=== PATIENT | female | born 1970 | race Caucasian/White ===

== ENCOUNTER 2018-12-09 15:05 | Inpatient (IN) | payer MEDICAID ==
[~2018-12-09] VITALS: Ht 167.6 cm; Wt 64.4 kg
[2018-12-09 15:15] VITALS: BP 145/95
--- NOTE | 2018-12-09 15:52 | NUR ---
PT AMB TO BED 9
--- NOTE | 2018-12-09 15:56 | NUR ---
48/F BIB C/O GENERALIZED ABD PAIN, CONSTIPATION X 3 DAYS. DENIES N/V/D. PT WAS SEEN HERE LAST NIGHT AND GIVEN MIRILAX PERSCRIPTION. PT STATES SHE DID NOT FILL THE PERSCRIPTION AND BOUGHT OVER THE COUNTER AND TOOK IT ONCE THIS MORNING AND IT DID NOT WORK. PMH: C SECTION X TWICE. RX: NONE NKA Addendum: 12/09/18 at 1818 by MED1 ABD SOFT , REBOUND TENDERNESS & BLOATED
--- NOTE | 2018-12-09 16:26 | NUR ---
PT TO XRAY VIA DOREEN ACCOMPANIED BY BEACH EXPERT
[2018-12-09] MEDS ORDERED: MORPHINE SULFATE 4 MG/ML SYR IM ONE (17:35)
[2018-12-09] MEDS ORDERED: NACL 0.9% 1,000 ML IV ONE (17:45)
[2018-12-09] MEDS ORDERED: ACETAMINOPHEN 325 MG TAB PO PRN (18:00)
[2018-12-09] MEDS ORDERED: HYDROcodone/APAP 5/325 MG 1 TAB TAB PO PRN (18:00)
[2018-12-09] MEDS ORDERED: ZOLPIDEM 5 MG TAB PO PRN (18:00)
[2018-12-09] MEDS ORDERED: LORazepam 2 MG/ML VIAL IM/IVP PRN (18:00)
[2018-12-09] MEDS ORDERED: DOCUSATE SODIUM 100 MG GELCAP PO PRN (18:00)
[2018-12-09 18:19] LABS: BASOPHILS % (AUTO) 0.3 % (0.0-2.0); EOSINOPHILS % (AUTO) 0.1 % (0.0-4.0); HEMATOCRIT 35.1 % (36-48); HEMOGLOBIN 11.1 g/dL (12.0-16.0); LYMPHOCYTES # (AUTO) 0.6 K/uL (2.5-16.5); LYMPHOCYTES % (AUTO) 9.8 % (20.5-51.1); MEAN CORPUSCULAR HEMOGLOBIN 27 pg (27-31); MEAN CORPUSCULAR HGB CONC 32 g/dL (33-37); MEAN CORPUSCULAR VOLUME 84.9 fL (80-94); MONOCYTES # (AUTO) 0.6 K/uL (0.8-1.0); MONOCYTES % (AUTO) 9.3 % (1.7-9.3); NEUTROPHILS % (AUTO) 80.5 % (42.2-75.2); PLATELET COUNT (AUTO) 314 K/uL (140-450); RED BLOOD CELL COUNT(AUTO) 4.13 MIL/uL (4.20-5.40); RED CELL DISTRIBUTION WIDTH 16.6 % (11.6-13.7); WHITE BLOOD COUNT (AUTO) 6.2 K/uL (4.8-10.8)
[2018-12-09 18:30] VITALS: BP 128/85
--- NOTE | 2018-12-09 18:30 | NUR ---
Patient will be admitted to care of DR DORMAN. Admited to TELE. Will go to room 105B. Belongings list completed. Report to GETACHEW RUTHERFORD.
--- NOTE | 2018-12-09 18:30 | NUR ---
PATIENT ARRIVED FROM ER, ABLE TO AMBULATE FROM ER BED TO [facility] BED WITH STEADY GAIT. AAOX4, CALM, COOPERATIVE, SKIN COLOR APPROPRIATE TO ETHNICITY, WARM TO TOUCH. SKIN INTACT. IV SITE INTACT, PATENT, ON SALINE LOCK AT THIS TIME. ABDOMEN SOFT. ORIENTED PATIENT TO ROOM AND CALL LIGHT. SAFETY MEASURES IN PLACE, CALL LIGHT WITHIN REACH. WILL CONTINUE TO MONITOR.
[2018-12-09 18:32] LABS: BARBITURATE, URINE NEG. ng/ml (NEG <=200); BENZODIAZEPINE, URINE NEG. ng/mL (NEG <=200); CANNABINOID, URINE NEG. ng/mL (NEG <=50); COCAINE, URINE NEG. ng/mL (NEG <=300); OPIATE, URINE NEG. ng/mL (NEG <=2000); PHENCYCLIDINE SCREEN,URINE NEG. ng/mL (NEG <=25)
[2018-12-09 18:43] LABS: ALBUMIN 3.8 g/dL (3.4-5.0); CARBON DIOXIDE 26.4 mmol/L (21-32); CREATININE 0.7 mg/dL (0.6-1.3); POTASSIUM 3.4 mmol/L (3.5-5.1); TOTAL BILIRUBIN 0.4 mg/dL (0.0-1.0)
[2018-12-09 18:49] LABS: CHOL/HDL RATIO 2.6 (1-4.5); MAGNESIUM 2.4 mg/dL (1.8-2.4); PHOSPHORUS 1.9 mg/dL (2.5-4.9); THYROID STIMULATING HORMONE 0.68 uIU/mL (0.34-3.74)
[2018-12-09] MEDS: NACL 0.9% 1,000 ML IV SCH (18:49)
[2018-12-09 19:05] LABS: PROTHROMBIN TIME 9.9 secs (10.8-13.4)
[2018-12-09] MEDS ORDERED: BISACODYL 10 MG SUPP RC ONE ×2 (19:05→22:15)
[2018-12-09] MEDS ORDERED: KCL 20 MEQ/WATER INJ PREMIX 100 ML IV ONE (19:05)
[2018-12-09 19:20] LABS: APPEARANCE,URINE SL CLOUDY (CLEAR); BILIRUBIN,URINE NEGATIVE (NEGATIVE); BLOOD, URINE NEGATIVE (NEGATIVE); COLOR,URINE YELLOW (YELLOW); LEUKOCYTE ESTERASE ,URINE NEGATIVE (NEGATIVE); NITRITE, URINE NEGATIVE (NEGATIVE); PH,URINE >=9.0 (5.0-9.0); UGLUCOSE NEGATIVE (NEGATIVE)
--- NOTE | 2018-12-09 19:25 | NUR ---
GAVE REPORT TO DATA ASSISTANT NURSE FOR CONTINUITY OF CARE. PATIENT IN STABLE CONDITION.
--- NOTE | 2018-12-09 19:37 | NUR ---
RECEIVED REPORT FROM AM RN IN BED AWAKE AND ALERT. ABLE TO VERBALIZE NEEDS IN CONGOLESE. CALL LIGHT WITH IN REACH. MEDICATED IN ER FOR PAIN . NO COMPLAINTS OF ANY DOLOR AT THIS TIME. DX. OF SBO. CONSULT WITH GI SPECIALIST. TELEMETRY MONITORING. ORIENTED TO CALL LIGHT USE FOR ANY HELP SHE MAY NEED OR IF WITH DOLOR. "OK"
[2018-12-09] MEDS ORDERED: SODIUM PHOS / POTASSIUM PHOS 1 PKT PDR PO SCH (20:00)
[2018-12-09] MEDS: ONDANSETRON 4 MG/2 ML VIAL IM/IVP PRN (21:34)
[2018-12-09] MEDS: MORPHINE SULFATE 4 MG/ML SYR IVP PRN (21:36)
[2018-12-09 21:38] VITALS: BP 130/86
--- NOTE | 2018-12-09 23:11 | NUR ---
PT. ASSISTED TO RESTROOM AT THIS TIME RT PT. TRYING TO GO BM. A/O X 4. ROM X 4. CLEAR SPEECH. ASSISTED BY CNAS.
[2018-12-09 23:51] VITALS: BP 126/76
[2018-12-10 02:50] VITALS: BP 130/84
[2018-12-10] MEDS: MORPHINE SULFATE 4 MG/ML SYR IVP PRN ×4 (02:57→23:24)
--- NOTE | 2018-12-10 03:00 | NUR ---
AWAKE AND WENT RESTROOM. HAD BM. INDEPENDENT. ROM X 4.
[2018-12-10] MEDS: ONDANSETRON 4 MG/2 ML VIAL IM/IVP PRN ×3 (03:04→20:19)
--- NOTE | 2018-12-10 04:52 | NUR ---
STOOL SPECIMEN SENT TO LAB. OCCULT BLOOD SENT. NO COMPLAINT AT THIS TIME. MEDICATED WITH MORPHINE 1 MG. IVP ORDERED PRN FOR ABDOMINAL PAIN COMPLAINTS.
[2018-12-10] MEDS: NACL 0.9% 1,000 ML IV SCH ×2 (05:14→08:13)
--- NOTE | 2018-12-10 06:31 | NUR ---
PATIENT HAS BEEN SCREENED AND CATEGORIZED MODERATE NUTRITION RISK. PATIENT WILL BE SEEN WITHIN 3-5 DAYS OF ADMISSION. 12/08/18-12/11/18 SVEN RANDOLPH MS, RDN
--- NOTE | 2018-12-10 06:53 | NUR ---
PT. AT THIS TIME AWAKE AND ABLE TO VERBALIZE SIMPLE NEEDS. NO COMPLAINTS OF PAIN. NO SOB. TELEMETRY MONITORING.
--- NOTE | 2018-12-10 07:15 | NUR ---
RECEIVED REPORT FROM CLINICAL NUTRITION MANAGER NURSE FOR CONTINUITY OF CARE. PT IN STABLE CONDITION. RESPIRATIONS EVEN AND UNLABORED. IV INTACT AND PATENT. SAFETY MEASURES IN PLACE. CALL LIGHT AT BEDSIDE. BED IN LOW POSITION. WILL CONTINUE TO MONITOR.
[2018-12-10 07:18] LABS: BASOPHILS % (AUTO) 0.4 % (0.0-2.0); EOSINOPHILS % (AUTO) 0.3 % (0.0-4.0); HEMATOCRIT 31.4 % (36-48); HEMOGLOBIN 10.1 g/dL (12.0-16.0); LYMPHOCYTES # (AUTO) 0.7 K/uL (2.5-16.5); LYMPHOCYTES % (AUTO) 11.5 % (20.5-51.1); MEAN CORPUSCULAR HEMOGLOBIN 28 pg (27-31); MEAN CORPUSCULAR HGB CONC 32 g/dL (33-37); MEAN CORPUSCULAR VOLUME 85.4 fL (80-94); MONOCYTES # (AUTO) 0.7 K/uL (0.8-1.0); MONOCYTES % (AUTO) 10.9 % (1.7-9.3); NEUTROPHILS # (AUTO) 4.8 K/uL (1.8-7.7); NEUTROPHILS % (AUTO) 76.9 % (42.2-75.2); PLATELET COUNT (AUTO) 290 K/uL (140-450); RED BLOOD CELL COUNT(AUTO) 3.68 MIL/uL (4.20-5.40); RED CELL DISTRIBUTION WIDTH 16.8 % (11.6-13.7); WHITE BLOOD COUNT (AUTO) 6.3 K/uL (4.8-10.8)
[2018-12-10] MEDS ORDERED: POTASSIUM CHLORIDE 10 MEQ TABER PO SCH (07:30)
[2018-12-10 07:53] LABS: ANION GAP 9.3 (8-16); CARBON DIOXIDE 25.8 mmol/L (21-32); CREATININE 0.6 mg/dL (0.6-1.3); POTASSIUM 5.1 mmol/L (3.5-5.1)
[2018-12-10 08:00] VITALS: BP 106/70
[2018-12-10 08:15] LABS: MAGNESIUM 2.2 mg/dL (1.8-2.4); PHOSPHORUS 2.5 mg/dL (2.5-4.9)
[2018-12-10] MEDS: METOCLOPRAMIDE 10 MG TAB PO SCH ×3 (08:22→16:30)
[2018-12-10] MEDS ORDERED: SIMETHICONE 80 MG TAB.CHEW PO SCH (09:33)
--- NOTE | 2018-12-10 10:25 | NUR ---
CONSENT FOR COLONOSCOPY SIGNED AT THIS TIME.
[2018-12-10 12:00] VITALS: BP 109/70
[2018-12-10] MEDS: BISACODYL 5 MG TABEC PO SCH ×2 (12:27→21:22)
[2018-12-10] MEDS: MAGNESIUM CITRATE 300 ML BTL PO SCH ×2 (12:27→21:22)
--- NOTE | 2018-12-10 12:30 | NUR ---
ORDERED DUE MEDICATIONS GIVEN AT THIS TIME. PT TOLERATED WELL. FAMILY AT BEDSIDE. WILL CONTINUE TO MONITOR.
--- NOTE | 2018-12-10 13:42 | NUR ---
PT LYING IN BED SLEEPING AT THIS TIME. RESPIRATIONS EVEN AND UNLABORED. WILL CONTINUE TO MONITOR.
[2018-12-10] MEDS ORDERED: SIMETHICONE 80 MG TAB.CHEW PO PRN (14:15)
[2018-12-10 16:00] VITALS: BP 127/78
[2018-12-10] MEDS ORDERED: HYDROmorphone 1 MG/ML AMP IVP ONE (16:15)
[2018-12-10] MEDS ORDERED: SODIUM PHOSPHATE 118 ML ENEM RC ONE (16:20)
[2018-12-10] MEDS ORDERED: HYDROmorphone 1 MG/ML AMP ONE (16:45)
--- NOTE | 2018-12-10 18:51 | NUR ---
FLEET ENEMA VERIFIED AT 1850 WILL INFORM POPULATION HEALTH MANAGER NURSE FOR ORDER.
--- NOTE | 2018-12-10 18:52 | NUR ---
WILL GIVE REPORT TO BLUEPRINT ASSEMBLER NURSE FOR CONTINUITY OF CARE. PT IN STABLE CONDITION.
--- NOTE | 2018-12-10 19:26 | NUR ---
RECEIVED FROM AM RN IN BED AWAKE AND ALERT. ABLE TO VERBALIZE NEEDS WELL. TELEMETRY MONITORING. CALL LIGHT WITH IN REACH. DX. SBO MANIFESTED BY ABDOMINAL PAIN. FOR COLONOSCOPY IN AM BY MD PIMENTEL. CONSENT SIGNED.
[2018-12-10 20:13] VITALS: BP 137/87
[2018-12-10] MEDS ORDERED: BISACODYL 5 MG TABEC ONE (21:20)
[2018-12-10] MEDS ORDERED: MAGNESIUM CITRATE 300 ML BTL ONE (21:23)
[2018-12-10] MEDS: SODIUM PHOSPHATE 118 ML ENEM RC SCH (21:23)
--- NOTE | 2018-12-10 22:43 | NUR ---
INFORMED RESIDENT MD MARAVILLA RE: PT BOWEL PREP ENEMA DONE ORDERED BUT UP TO THIS TIME NO STOOL SEEN EXCEPT A LIQUIDY SLIMMY OUTPUT CAME OUT PER SPOUSE. PT. BEEN VOMITING TOO. MAG CITRATE BOWEL PREP P.O. HAD BEEN VOMITED BY PT. PER RESIDENT MD SHE WILL INFORM MD PIMENTEL ABOUT IT TOMORROW IN A.M.
[2018-12-10 23:22] VITALS: BP 136/86
--- NOTE | 2018-12-10 23:29 | NUR ---
MEDICATED WITH MORPHINE 1 MG IVP REQUESTED RT C/O ABDOMINAL PAIN. SPOUSE STILL HERE AND READY TO LEAVE. CALL LIGHT WITH IN REACH.
--- NOTE | 2018-12-11 | NUR ---
PT. SLEEPING AND SPOUSE SAID HE WILL BE BACK IN A.M. INFORMED THEM OF TIME FOR PROCEDURE . TELEMETRY MONITORING. BED ALARM ON.
[2018-12-11] MEDS: ONDANSETRON 4 MG/2 ML VIAL IM/IVP PRN ×2 (01:10→08:03)
[2018-12-11] MEDS: NACL 0.9% 1,000 ML IV SCH (01:10)
[2018-12-11] MEDS ORDERED: HYDROmorphone 1 MG/ML AMP IVP SCH (01:15)
--- NOTE | 2018-12-11 01:22 | NUR ---
MEDICATED WITH DILAUDID 0.5 MG IVP ORDERED BY RESIDENT RT PT. CRYING AND COMPLAINED THAT HER STOMACH REALLY HURTS. PT. NOW RELAXED AND TRYING TO GO BACK TO SLEEP. BED ALARM ON FOR SAFETY MEASURES. INFORMED HER THAT I GAVE HER A DIFFERENT MEDICINE AND IT IS SAME WITH THIS AFTERNOON THAT THE SPOUSE SAID TO ME EARLIER WAS MORE EFFECTIVE FOR HER. TELEMETRY MONITORING.
[2018-12-11 05:08] VITALS: BP 131/74
[2018-12-11] MEDS: METOCLOPRAMIDE 10 MG TAB PO SCH (05:14)
--- NOTE | 2018-12-11 05:14 | NUR ---
PT. REFUSED TO TAKE REGLAN RT VOMITING A LOT.
[2018-12-11] MEDS ORDERED: METOCLOPRAMIDE 10 MG/2 ML INJ VIAL IVP PRN (05:25)
--- NOTE | 2018-12-11 06:22 | NUR ---
REGLAN IVP ORDERED BY RESIDENT MD MARAVILLA RT PT. REFUSED P.O. FORM. PT. AGREED WITH IT. TOLERATED WELL. NO BM AT THIS TIME STILL.
[2018-12-11 06:42] LABS: ANION GAP 10.5 (8-16); CARBON DIOXIDE 27.4 mmol/L (21-32); CREATININE 0.7 mg/dL (0.6-1.3); POTASSIUM 3.9 mmol/L (3.5-5.1)
[2018-12-11 06:46] LABS: MAGNESIUM 2.1 mg/dL (1.8-2.4); PHOSPHORUS 4.5 mg/dL (2.5-4.9)
[2018-12-11] MEDS: DEXT 5% /NACL 0.9% 1,000 ML IV SCH ×2 (06:53→18:07)
--- NOTE | 2018-12-11 07:24 | NUR ---
RECEIVED REPORT FROM MOTORCYCLE RACER NURSE FOR CONTINUITY OF CARE. PT IN STABLE CONDITION. RESPIRATIONS EVEN AND UNLABORED. IV INTACT AND PATENT. SAFETY MEASURES IN PLACE. CALL LIGHT AT BEDSIDE. BED IN LOW POSITION. WILL CONTINUE TO MONITOR.
[2018-12-11 08:00] VITALS: BP 129/84
[2018-12-11] MEDS: MORPHINE SULFATE 4 MG/ML SYR IVP PRN ×5 (08:04→22:46)
--- NOTE | 2018-12-11 08:05 | NUR ---
PT STATES SHE HAS PAIN OF 7/10 AND NAUSEA. MORPHINE 1MG WAS GIVEN FOR PAIN AND ZOFRAN 4MG WERE GIVEN FOR THE NAUSEA. WILL REASSESS FOR MED EFFECTIVENESS.
--- NOTE | 2018-12-11 08:15 | NUR ---
FLEET ENEMA WAS ADMINISTERED TO PT. PT TOLERATING WELL. PT INSTRUCTED TO HOLD ENEMA SOLUTION FOR 15MINS OR ABLE TO TOLERATE. WILL REASSESS PT FREQUENTLY FOR EFFECTIVENESS OF ENEMA. CALL LIGHT WITHIN REACH, BED IN LOW POSITION. WALKWAY TO RESTROOM CLEAR.
[2018-12-11 08:20] LABS: BASOPHILS % (AUTO) 0.1 % (0.0-2.0); HEMATOCRIT 33.4 % (36-48); HEMOGLOBIN 10.7 g/dL (12.0-16.0); LYMPHOCYTES # (AUTO) 0.3 K/uL (2.5-16.5); LYMPHOCYTES % (AUTO) 4.2 % (20.5-51.1); MEAN CORPUSCULAR HEMOGLOBIN 28 pg (27-31); MEAN CORPUSCULAR HGB CONC 32 g/dL (33-37); MONOCYTES # (AUTO) 0.6 K/uL (0.8-1.0); MONOCYTES % (AUTO) 7.9 % (1.7-9.3); NEUTROPHILS # (AUTO) 6.7 K/uL (1.8-7.7); NEUTROPHILS % (AUTO) 87.8 % (42.2-75.2); PLATELET COUNT (AUTO) 299 K/uL (140-450); RED BLOOD CELL COUNT(AUTO) 3.88 MIL/uL (4.20-5.40); RED CELL DISTRIBUTION WIDTH 16.5 % (11.6-13.7); WHITE BLOOD COUNT (AUTO) 7.7 K/uL (4.8-10.8)
[2018-12-11] MEDS: SODIUM PHOSPHATE 118 ML ENEM RC SCH (08:20)
--- NOTE | 2018-12-11 08:31 | NUR ---
PT HELD ENEMA SOLUTION FOR ABOUT 8 MINS. PT USED RESTROOM TWICE. WATERY STOOL PRESENT IN BOTH BOWEL MOVEMENTS. PT STATES SHE FEELS BETTER AFTER BOWEL MOVEMENTS.
[2018-12-11] MEDS ORDERED: MIDAZOLAM 2 MG/2 ML VIAL ONE (09:00)
[2018-12-11] MEDS ORDERED: fentaNYL 0.05 MG/ML VIAL ONE (09:00)
--- NOTE | 2018-12-11 09:21 | NUR ---
PT TAKEN FOR COLONOSCOPY. PT IN STABLE CONDITION.
[2018-12-11] MEDS: MIDAZOLAM 2 MG/2 ML VIAL IVP SCH ×2 (09:41→10:28)
[2018-12-11] MEDS: fentaNYL 0.05 MG/ML VIAL IVP SCH ×2 (09:43→10:28)
[2018-12-11 12:00] VITALS: BP 137/87
--- NOTE | 2018-12-11 14:01 | NUR ---
12/11/18 RD INITIAL ASSESSMENT COMPLETED PLEASE REFER TO NUTRITION ASSESSMENT UNDER CARE ACTIVITY FOR ESTIMATED NUTRITIONAL NEEDS. 1. CONTINUE NPO MEDICALLY NECESSARY 2. IF/WHEN PATIENT IS MEDICALLY STABLE CONSIDER ADVANCING TO CLEAR LIQUIDS WITH ENSURE CLEAR TID TOLERATED 3. IF PT CONTINUES TO NOT TOLERATED FOOD OR LIQUIDS OR CONTINUES NPO, CONSIDER INITIATING TPN 4. RD TO FOLLOW-UP 2-3 DAYS, HIGH RISK ERENDIRA SHEA RD
--- NOTE | 2018-12-11 14:52 | NUR ---
PT WITH AT BEDSIDE. NO COMPLAINTS OF PAIN AT THIS TIME. WILL CONTINUE TO ROUND FREQUENTLY.
[2018-12-11 16:00] VITALS: BP 119/66
--- NOTE | 2018-12-11 18:06 | NUR ---
PT GIVEN MORPHINE 2MG FOR PAIN OF 06/23. PT STATES MORPHINE HELPS FOR A LITTLE WHILE. WILL REASSESS FOR MED EFFECTIVENESS. CALL LIGHT WITHIN REACH. BED IN LOW POSITION.
--- NOTE | 2018-12-11 19:38 | NUR ---
RECEIVED ENDORSEMENT FROM RADHA RUTHERFORD DAYSHIFT NURSE AT BEDSIDE FOR CONTINUITY OF CARE, PT IN STABLE CONDITION.
--- NOTE | 2018-12-11 19:38 | NUR ---
ENDORSED PT TOT EVP OPERATIONS FOR CONTINUITY OF CARE. PT IN STABLE CONDITION AT THIS TIME.
[2018-12-11 20:00] VITALS: BP 132/91
[2018-12-11] MEDS: HYDROcodone/APAP 7.5/325 MG 1 TAB PO PRN (20:23)
--- NOTE | 2018-12-11 20:29 | NUR ---
PT IN LOW BED WITH SIDE RAILS UP X2 AND CALL SMYTH IN REACH. V/S FOLLOWS T 100 P 103 R 20 B/P 132/91. PT C/O 5/10 INTERMITTENT PAIN IN ABDOMEN. PT GIVEN COOLING MEASURES OF ICE PACKS UNDER HER ARMS AND COOL CLOTH ON HER FOREHEAD. PT ALSO GIVEN PRN NORCO FOR MODERATE PAIN. WILL CONTINUE TO MONITOR PT FOR PAIN AND INCREASED TEMP.
--- NOTE | 2018-12-11 21:45 | NUR ---
TEMP RECHECKED AND IT WAS 98.4.
--- NOTE | 2018-12-11 22:50 | NUR ---
PT C/O 8/10 PAIN IN ABDOMEN AND THAT HER SHEET WAS WET AND SHE WAS CONCERNED THAT HER IV SITE WAS LEAKING. IV SITE DISCONTINUED AND A NEW SITE PROVIDED TO LEFT HAND 22G. ATTEMPTS X2. IV SITE FLUSHED PATENT AND SHE RECEIVED 2MG OF MORPHINE IV PUSH. ALL REQUESTED NEEDS ATTENDED.
[2018-12-12] VITALS: BP 117/82
[2018-12-12] MEDS: HYDROcodone/APAP 7.5/325 MG 1 TAB PO PRN ×2 (01:14→09:43)
--- NOTE | 2018-12-12 01:15 | NUR ---
PT IN BED WITH C/O OF MODERATE PAIN IN ABDOMEN 04/23). PT GIVEN NORCO PO/PRN. PT V/S FOLLOWS T 98.1 P 70 R 18 B/P 117/82 02 96% WITH R/A. OBTAINED CONSENT USING [employer] MARINE ENGINEERPictela WITH [employer]INE ENGINEER [id number]. ALL PT QUESTIONS AND CONCERNS ADDRESSED.
[2018-12-12] MEDS: DEXT 5% /NACL 0.9% 1,000 ML IV SCH ×3 (02:10→22:07)
[2018-12-12] MEDS: MORPHINE SULFATE 4 MG/ML SYR IVP PRN ×4 (02:56→21:01)
--- NOTE | 2018-12-12 03:00 | NUR ---
PT C/O SEVERE PAIN 06/23. GIVEN IVP MORPHINE FOR ABD PAIN WILL MONITOR FOR EFFECT.
[2018-12-12 04:00] VITALS: BP 119/82
[2018-12-12 06:19] LABS: FOLIC ACID 12.4 ng/mL (>3.0)
--- NOTE | 2018-12-12 07:20 | NUR ---
ENDORSED CARE TO REESE RN DAYSHIFT NURSE AT BEDSIDE FOR CONTINUITY OF CARE, PT IN STABLE CONDITION.
--- NOTE | 2018-12-12 07:21 | NUR ---
RECEIVED BEDSIDE REPORT FROM ROTARY DRILLER NURSE. PATIENT IS AWAKE, ALERT AND ORIENTEDX4. NO SIGNS OF DISTRESS ON RA. PATIENT IS AMBULATORY, GAIT IS STEADY. SKIN IS INTACT. PATIENT IS CONTINENT. TELE MONITOR IN PLACE. IV ON L HAND 24G INFUSING D5NS AT 100. CLEAN, DRY AND INTACT. NPO SIGN POSTED. BED IN LOW POSITION. CALL LIGHT WITHIN REACH. WILL CONTINUE TO MONITOR THE PATIENT.
[2018-12-12 07:29] LABS: BASOPHILS % (AUTO) 0.5 % (0.0-2.0); EOSINOPHILS # (AUTO) 0.1 K/uL (0-0.4); HEMATOCRIT 31.1 % (36-48); HEMOGLOBIN 9.9 g/dL (12.0-16.0); LYMPHOCYTES % (AUTO) 20.6 % (20.5-51.1); MEAN CORPUSCULAR HEMOGLOBIN 28 pg (27-31); MEAN CORPUSCULAR HGB CONC 32 g/dL (33-37); MEAN CORPUSCULAR VOLUME 86.2 fL (80-94); MONOCYTES # (AUTO) 0.8 K/uL (0.8-1.0); MONOCYTES % (AUTO) 15.9 % (1.7-9.3); PLATELET COUNT (AUTO) 299 K/uL (140-450); RED CELL DISTRIBUTION WIDTH 16.8 % (11.6-13.7); WHITE BLOOD COUNT (AUTO) 4.9 K/uL (4.8-10.8)
[2018-12-12 08:00] VITALS: BP 134/86
--- NOTE | 2018-12-12 08:17 | NUR ---
PATIENT IS REQUESTING ICE CHIPS. TOLD HER SHE IS NOT ALLOWED TO. NPO EXCEPT MEDS. PATIENT VERBALIZED UNDERSTANDING. ADMINISTERED PRN PAIN MEDS. PATIENT TOLERATED WELL. WILL CONTINUE TO MONITOR THE PATIENT.
[2018-12-12 08:36] LABS: CREATININE 0.6 mg/dL (0.6-1.3)
[2018-12-12 08:43] LABS: ANION GAP 9.1 (8-16); CARBON DIOXIDE 28.3 mmol/L (21-32); POTASSIUM 3.4 mmol/L (3.5-5.1)
[2018-12-12] MEDS ORDERED: POTASSIUM CHLORIDE 10 MEQ TABER PO SCH (09:26)
--- NOTE | 2018-12-12 10:11 | NUR ---
FAMILY AT BEDSIDE. NO SIGNS OF DISTRESS. WILL CONTINUE TO MONITOR THE PATIENT.
--- NOTE | 2018-12-12 11:24 | NUR ---
patient laying in bed. no signs of distress. will continue to monitor. family at bedside
[2018-12-12 12:00] VITALS: BP 123/80
--- NOTE | 2018-12-12 12:20 | NUR ---
PATIENT IN NO DISTRESS. FAMILY AT BESIDE. WILL CONTINUE TO MONITOR
--- NOTE | 2018-12-12 14:43 | NUR ---
ADMINISTERED PRN PAIN MED. PATIENT TOLERATED WELL. NO SIGNS OF DISTRESS. WILL CONTINUE TO MONITOR
[2018-12-12 16:00] VITALS: BP 130/77
--- NOTE | 2018-12-12 16:49 | NUR ---
PATIENT PICKED UP BY OR STAFF. WILL CONTINUE TO MONITOR PATIENT ON ARRIVAL
[2018-12-12] MEDS ORDERED: PROPOFOL 200 MG/20 ML VIAL IV ONE (17:05)
[2018-12-12] MEDS ORDERED: SEVOFLURANE 250 ML BTL INH ONE (17:05)
[2018-12-12] MEDS ORDERED: SUCCINYLCHOLINE CHLORIDE 200 MG/10 ML VIAL IVP ONE (17:05)
[2018-12-12] MEDS ORDERED: KETOROLAC 30 MG/ML VIAL ONE (17:05)
[2018-12-12] MEDS ORDERED: DEXAMETHASONE 4 MG/ML VIAL ONE (17:05)
[2018-12-12] MEDS ORDERED: ONDANSETRON 4 MG/2 ML VIAL ONE (17:05)
[2018-12-12] MEDS ORDERED: ROCURONIUM 50 MG/5 ML VIAL IV ONE (17:05)
[2018-12-12] MEDS ORDERED: MIDAZOLAM 2 MG/2 ML VIAL ONE (17:09)
[2018-12-12] MEDS ORDERED: MEPERIDINE 50 MG/ML SYR ONE (17:09)
[2018-12-12] MEDS ORDERED: fentaNYL 0.05 MG/ML VIAL ONE (17:09)
--- NOTE | 2018-12-12 18:03 | NUR ---
GAVE BEDSIDE REPORT TO ICU NURSE. PATIENT GOING TO ICU AFTER SURGERY. ALL BELONGINGS SENT TO ICU EXCEPT WEIR ARE NOT ALLOWED ON THE FLOOR. WEIR ARE IN NURSING STATION IN ICU. DR TORRE AWARE OF ICU TRANSFER
[2018-12-12] MEDS ORDERED: MEROPENEM 1,000 MG in NACL 0.9% 100 ML IV ONE (18:20)
[2018-12-12] MEDS ORDERED: LACTATED RINGERS 1,000 ML IV SCH (19:43)
[2018-12-12] MEDS ORDERED: HYDROmorphone 1 MG/ML AMP IVP PRN (19:45)
[2018-12-12] MEDS ORDERED: MEPERIDINE 25 MG/ML SYR IVP PRN (19:45)
[2018-12-12] MEDS ORDERED: ONDANSETRON 4 MG/2 ML VIAL IVP PRN (19:45)
[2018-12-12] MEDS ORDERED: diphenhydrAMINE 50 MG/ML VIAL IVP PRN (19:45)
[2018-12-12] MEDS ORDERED: BUPIVACAINE-MPF/EPI 0.25% 30 ML VIAL INJ ONE (19:50)
[2018-12-12] MEDS ORDERED: ONDANSETRON 4 MG/2 ML VIAL IV PRN (20:20)
[2018-12-12] MEDS ORDERED: MORPHINE SULFATE 4 MG/ML SYR IV PRN (20:20)
[2018-12-12] MEDS ORDERED: MORPHINE SULFATE 2 MG/ML SYR IVP PRN (20:20)
--- NOTE | 2018-12-12 20:22 | NUR ---
PT ARRIVE ON ICU, AT 2021. RECEIVED PT FROM NELSON RUTHERFORD. VSS. TEMP 96.7, HR=67, SATING 100%, VL=777/94, RR=15. LUNG SOUNDS CLEAR ON UPPER/LOWER BILATERAL LOBES. ON FACIAL MASK 8L/MIN. BOWEL SOUND ACTIVE X4, COLOSTOMY IN PLACE. BHARATI DRAIN IN PLACE, DARK RED/SANGUINOUS. CORRAL CATHETER IN PLACE, URINE IS LIGHT KALE. LEFT HAND 24 GAUGE PIV, AND RIGHT FOREARM 20 GAUGE PIV INFUSING LR, IVF. Addendum: 12/12/18 at 2121 by Alessandra Evans RN SCDS ON BILATERAL LEGS, HOB ELEVATED, STANDARD PRECAUTIONS. ABDOMINAL DRESSING DRY/INTACT.
--- NOTE | 2018-12-12 20:35 | NUR ---
DR. BOBO AT BEDSIDE TO SEE PATIENT.
--- NOTE | 2018-12-12 20:46 | NUR ---
DR. BOBO AT BEDSIDE. STATED IF TACHYCARDIC/HYPOTENSIVE, OR BHARATI DRAIN OUTPUT GREATER THAN 150ML. CONTACT DR. BOBO. PT IS AWAKE, LETHARGIC AT THIS TIME. AT BEDSIDE TO SEE PATIENT. Addendum: 12/12/18 at 2120 by Alessandra Evans RN BHARATI DRAIN OUTPUT = 90ML, UPON ARRIVAL TO ICU. DARK RED/SANGUINOUS
--- NOTE | 2018-12-12 21:01 | NUR ---
RATED PAIN 10/10 AT ABDOMINAL SITE, MORPHINE IVP GIVEN.
[2018-12-12] MEDS ORDERED: MEROPENEM 1,000 MG VIAL IV ONE (21:03)
[2018-12-12 22:00] VITALS: BP 149/94
[2018-12-13] VITALS (8 sets, daily range): BP systolic 139–163; BP diastolic 76–99
[2018-12-13] MEDS: MORPHINE SULFATE 4 MG/ML SYR IVP PRN (01:12)
--- NOTE | 2018-12-13 01:13 | NUR ---
VSS. C/O PAIN IN BACK AND ABDOMINAL AREA, MORPHINE GIVEN. PT ABLE TO REPOSITION SELF IN BED, PILLOW SUPPORT, AND SCDS ON BILATERAL LEGS.
--- NOTE | 2018-12-13 03:41 | NUR ---
PT C/O PAIN RATED 6-7/10. PT REFUSED ORAL MED DUE TO FEAR OF VOMITTING, INFORMED PT THAT ZOFRAN CAN BE GIVEN/IS A MEDICATION GIVEN TO PREVENT N/V. PT WAS ABLE TO TAKE 1 SIP OF WATER AT BEDSIDE, BUT REFUSES TO TAKE ORAL MEDICATION AT THIS TIME. PT INFORMED NEXT DOSE OF MORPHINE IS APPROX 1 HOUR FROM NOW. PT STATES PAIN IS LOCATED ON BACK, MORE SO THAN PAIN AT ABDOMNIAL INCISION SITE. PT IS ABLE TO REPOSITION SELF, PILLOW SUPPORT PROVIDED. REPOSITIONING HELPS ALLEVIATE PAIN.
--- NOTE | 2018-12-13 04:55 | NUR ---
RT ZULETA AT BEDSIDE TO SEE PATIENT, PT IS AWAKE/ALERT. ABLE TO REPOSITION SELF IN BED. Addendum: 12/13/18 at 0456 by Alessandra Evans RN OFF FACIAL MAS AT THIS TIME, SATING 98%, RR=13.
[2018-12-13 05:58] LABS: HEMOGLOBIN 10.2 g/dL (12.0-16.0); LYMPHOCYTES # (AUTO) 0.3 K/uL (2.5-16.5); LYMPHOCYTES % (AUTO) 3.6 % (20.5-51.1); MEAN CORPUSCULAR HEMOGLOBIN 27 pg (27-31); MEAN CORPUSCULAR HGB CONC 32 g/dL (33-37); MEAN CORPUSCULAR VOLUME 85.7 fL (80-94); NEUTROPHILS # (AUTO) 6.5 K/uL (1.8-7.7); NEUTROPHILS % (AUTO) 83.4 % (42.2-75.2); PLATELET COUNT (AUTO) 282 K/uL (140-450); RED BLOOD CELL COUNT(AUTO) 3.73 MIL/uL (4.20-5.40); RED CELL DISTRIBUTION WIDTH 16.4 % (11.6-13.7); WHITE BLOOD COUNT (AUTO) 7.8 K/uL (4.8-10.8)
--- NOTE | 2018-12-13 07:25 | NUR ---
RECEIVED BEDSIDE REPORT FROM ASSOCIATE PUBLISHER RN, AFIA, FOR CONTINUITY OF CARE. PATIENT IS AAOX4, SALVADOREAN SPEAKING, ABLE TO MAKE NEEDS KNOWN AND FOLLOW COMMANDS. PATIENT IS ON ROOM AIR, SR ON MONITOR. DENIES ANY PAIN AT THIS TIME, EDUCATED ON PAIN MANAGEMENT, REINFORCEMENT NEEDED. SKIN IS NOT INTACT, SHE HAS A S/P INCISION TO ABDOMEN WITH DRESSING DRY AND CLEAN. PATIENT HAS BHARATI DRAIN IN PLACE TO SEROSANGUINEOUS DRAINAGE. COLOSTOMY BAG IN PLACE. CORRAL CATHETER IN PLACE TO CLEAR YELLOW URINE. SAFETY PRECAUTIONS ASSESSED AND ENFORCED. HOB 30 DEGREES, NO SIGNS OF DISTRESS NOTED.
--- NOTE | 2018-12-13 07:30 | NUR ---
PROVIDED BEDSID REPORT TO MORNING SHIFT RN, JASPER, FOR CONTINUITY OF CARE.
--- NOTE | 2018-12-13 08:00 | NUR ---
DR. DORMAN AND RESIDENT PHYSICIANS IN TO SEE PATIENT, WILL FOLLOW UP ON ANY ORDERS.
[2018-12-13] MEDS: ENOXAPARIN 40 MG/0.4 ML SYR SUBQ SCH (09:03)
[2018-12-13] MEDS: DEXT 5% /NACL 0.9% 1,000 ML IV SCH (09:04)
[2018-12-13 11:08] LABS: ANION GAP 6.6 (8-16); CARBON DIOXIDE 30.3 mmol/L (21-32); CREATININE 0.7 mg/dL (0.6-1.3); POTASSIUM 3.9 mmol/L (3.5-5.1)
[2018-12-13] MEDS: KETOROLAC 30 MG/ML VIAL IVP PRN ×2 (11:19→22:56)
[2018-12-13 11:21] LABS: BASOPHILS % (AUTO) 0.1 % (0.0-2.0); EOSINOPHILS % (AUTO) 0.1 % (0.0-4.0); HEMOGLOBIN 10.3 g/dL (12.0-16.0); LYMPHOCYTES # (AUTO) 0.8 K/uL (2.5-16.5); LYMPHOCYTES % (AUTO) 10.4 % (20.5-51.1); MEAN CORPUSCULAR HEMOGLOBIN 27 pg (27-31); MEAN CORPUSCULAR HGB CONC 32 g/dL (33-37); MEAN CORPUSCULAR VOLUME 85.2 fL (80-94); MONOCYTES # (AUTO) 1.1 K/uL (0.8-1.0); MONOCYTES % (AUTO) 13.6 % (1.7-9.3); NEUTROPHILS % (AUTO) 75.8 % (42.2-75.2); PLATELET COUNT (AUTO) 325 K/uL (140-450); RED BLOOD CELL COUNT(AUTO) 3.76 MIL/uL (4.20-5.40); RED CELL DISTRIBUTION WIDTH 16.6 % (11.6-13.7); WHITE BLOOD COUNT (AUTO) 7.9 K/uL (4.8-10.8)
--- NOTE | 2018-12-13 11:53 | NUR ---
DR. BOBO IN TO SEE PATIENT, UPDATED ON PATIENT'S CONDITION.
--- NOTE | 2018-12-13 12:44 | NUR ---
PATIENT'S FAMILY AT BEDSIDE, NO SIGNS OF DISTRESS NOTED
--- NOTE | 2018-12-13 12:48 | NUR ---
12/13/18 RD FOLLOW UP COMPLETED PLEASE REFER TO NUTRITION ASSESSMENT UNDER CARE ACTIVITY FOR ESTIMATED NUTRITIONAL NEEDS. 1. CONTINUE CLEAR LIQUID DIET TOLERATED 2. IF TOLERATING, ADVANCE TO FULL LIQUID DIET. IF NOT TOLERATED, CONSIDER TPN 3. RECOMMEND PROSOURCE NO CARB BID 4. RD TO FOLLOW-UP 2-3 DAYS, HIGH RISK ERENDIRA SHEA RD
--- NOTE | 2018-12-13 15:50 | NUR ---
TRANSFERRED PATIENT TO [facility] VIA WHEELCHAIR, ACCOMPANIED BY PATIENT'S . ENDORSED CONTINUITY OF CARE TO [facility] RNLAZARO. NO SIGNS OF DISTRESS AT THIS TIME.
--- NOTE | 2018-12-13 15:51 | NUR ---
ASSUMED CARE FROM ICU NURSE, PT AAOX4. NO SOB NOTED. NO C/O PAIN AT THIS LAEVRNE. IV TO RT AC AND LT HAND PATENT. CHEST DIMINISHED AIR ENTRY TO THE BASES. ABDOMEN SOFT, WITH HYPOACTIVE BOWELS NOTED. WITH MIDLINE SURGICAL INCISION, DRESSING DRY AND INTACT, LT COLOSTOMY AND LT BHARATI NOTED. NO EDEMA NOTED. INSTRUCTED PT TO CALL FOR ASSISTANCE, CALL LIGHT WITHIN REACH, PT VERBALIZED UNDERSTANDING.
--- NOTE | 2018-12-13 16:15 | NUR ---
BEDSIDE COMMODE PROVIDED.
[2018-12-13] MEDS: HYDROcodone/APAP 7.5/325 MG 1 TAB PO PRN (16:23)
--- NOTE | 2018-12-13 17:30 | NUR ---
PT RESTING. NO SOB NOTED. NO COMPLAINTS MADE
--- NOTE | 2018-12-13 19:00 | NUR ---
PT AWAKE, NO SOB NOTED. NO COMPLAINTS MADE. WILL ENDORSE TO NEXT SHIFT NURSE FOR CONTINUITY OF CARE.
--- NOTE | 2018-12-13 19:30 | NUR ---
ASSUMED CARE OF PATIENT, AWAKE, ALERT AND ORIENTED. NO COMPLAINS. FAMILY AT BEDSIDE. CARE BOARD UPDATED. PLAN OF CARE DISCUSSED WITH PATIENT AND FAMILY MEMBER, VERBALIZED UNDERSTANDING WELL. CALL LIGHT WITHIN REACH.
--- NOTE | 2018-12-13 21:00 | NUR ---
PATIENT VERBALIZED WANTED TO AMBULATE, ATTEMPTED BUT FELT DIZZY. CALL LIGHT WITHIN REACH. ASSISTED WITH BRP.
[2018-12-13] MEDS: ONDANSETRON 4 MG/2 ML VIAL IM/IVP PRN (22:56)
[2018-12-13] MEDS ORDERED: ZOLPIDEM 5 MG TAB PO SCH (23:00)
--- NOTE | 2018-12-14 | NUR ---
VITALS SIGNS STABLE. NO COMPLAINS. AFEBRILE. CALL LIGHT WITHIN REACH.
[2018-12-14 00:01] VITALS: BP 139/89
--- NOTE | 2018-12-14 07:16 | NUR ---
ENDORSED CARE AT BEDSIDE WITH RADHA RN, PATIENT IN STABLE CONDITION.
--- NOTE | 2018-12-14 07:30 | NUR ---
RECEIVED PT ON BED AAOX4. NO SOB NOTED. NO C/O PAIN AT THIS TIME. IV TO LT HAND AND RT AC PATENT AND INTACT. CHEST, DIMINISHED AIR ENTRY TO THE BASES. ABDOMEN SOFT, WITH HYPOACTIVE BOWEL SOUNDS. WITH LT COLOSTOMY NOTED, WITH VERY SMALL AMOUNT OF LIGHT PINK OUTPUT. WITH LEFT ABD BHARATI DRAINING MODERATE AMOUNTS OF SERO SANGUINOUS FLUID. NO EDEMA NOTED. INSTRUCTED PT TO CALL FOR ASSISTANCE, CALL LIGHT WITHIN REACH, PT VERBALIZED UNDERSTANDING.
[2018-12-14 08:00] VITALS: BP 145/89
[2018-12-14] MEDS ORDERED: SIMETHICONE 80 MG TAB.CHEW PO SCH (09:00)
--- NOTE | 2018-12-14 09:30 | NUR ---
PHYSICAL THERAPY ON GOING AT THE BEDSIDE.
[2018-12-14] MEDS: ENOXAPARIN 40 MG/0.4 ML SYR SUBQ SCH (09:49)
[2018-12-14] MEDS: HYDROcodone/APAP 7.5/325 MG 1 TAB PO PRN (09:49)
--- NOTE | 2018-12-14 12:32 | NUR ---
PT CONSUMED 75% ON REGULAR FOOD FOR LUNCH, TOLERATED WELL. NO N&V NOTED.
[2018-12-14] MEDS ORDERED: HYDR-5123 PO (13:51)
[2018-12-14] MEDS ORDERED: DOCU-299 PO (13:52)
--- NOTE | 2018-12-14 15:20 | NUR ---
PT AWAKE, TALKING TO VISITORS AT THE BEDSIDE. NO COMPLAINTS.
[2018-12-14 16:00] VITALS: BP 139/90
--- NOTE | 2018-12-14 17:45 | NUR ---
DISCHARGE PHOTO TAKEN AND DOCUMENTED.
--- NOTE | 2018-12-14 18:30 | NUR ---
DISCHARGE INSTRUCTIONS AND PRESCRIPTIONS GIVEN TO PT AND SPOUSE, BOTH VERBALIZED FULL UNDERSTANDING IF THE INSTRUCTIONS AND THE NEED TO FOLLOW WITH PCP, DR. BOBO AND DR. WHITE. WOUND DRESSING, BHARATI DRAIN AND COLOSTOMY GIVEN TO PT;S SPOUSE BOBY WHICH VERBALIZED UNDERSTANDING, RETURN DEMONSTRATION GIVEN WELL. ARM BAND AND IV REMOVED, CANNULA TIP INTACT. SUPPLIES FOR DRESSING AND COLOSTOMY BAG GIVEN
--- NOTE | 2018-12-14 19:00 | NUR ---
PT WHEELED TO THE PARKING LOT IN STABLE CONDITION. NO COMPLAINTS MADE. PT IS D/C HOME WITH SPOUSE.
== END 2018-12-14 19:00 | disposition home or self-care (01) | DRG 231 ==
LOC: MED 15:05 → MTU 18:08 → MIC 12-12 20:24 → MTU 12-13 15:40
PROVIDERS: ADMIT General Practice; ATTEND General Practice
PROC: 0DBM8ZX Excision of Descending Colon, Via Natural or Artificial Opening Endoscopic, Diagnostic (ICD-10-PCS; 2018-12-11)
PROC: 0DBM0ZZ Excision of Descending Colon, Open Approach (ICD-10-PCS; 2018-12-12)
PROC: 0D1N0Z4 Bypass Sigmoid Colon to Cutaneous, Open Approach (ICD-10-PCS; 2018-12-12)
PROC: 0DTN0ZZ Resection of Sigmoid Colon, Open Approach (ICD-10-PCS; principal; 2018-12-12 17:00)
DX: C18.6 Malignant neoplasm of descending colon (principal); K56.609 Unspecified intestinal obstruction, unspecified as to partial versus complete obstruction; E87.8 Other disorders of electrolyte and fluid balance, not elsewhere classified; K56.7 Ileus, unspecified; E83.39 Other disorders of phosphorus metabolism; D64.9 Anemia, unspecified; E78.5 Hyperlipidemia, unspecified; E87.6 Hypokalemia; K64.9 Unspecified hemorrhoids; Z98.891 History of uterine scar from previous surgery
CPT/HCPCS: 36415; 74018; 74022; 80048; 80053; 80305; 81003; 82150; 82272; 82607; 82728; 82746; 83036; 83540; 83690; 83735; 84100; 84134; 84443; 84703; 85025; 85045; 85610; 85730; 86886; 86900; 86901; 87081; 88305; 88309; 88342; 93005; 96372; 97116; 99285; J0330; J1100; J1170; J1650; J1885; J2175; J2185; J2250; J2270; J2405; J2704; J2765; J3010; J3480; J3490; J7030; J7042; J7120; J8597; Q0092

== ENCOUNTER 2018-12-15 14:29 | Emergency (ER) | payer MEDICAID ==
[~2018-12-15] VITALS: Ht 167.6 cm; Wt 63.5 kg
[~2018-12-15 14:29] MED LIST: DOCU-299 PO; HYDR-5123 PO
--- NOTE | 2018-12-15 14:37 | NUR ---
PT AMBULATED TO ER BED 06
[2018-12-15 14:44] VITALS: BP 122/86
--- NOTE | 2018-12-15 14:51 | NUR ---
48 Y/O F BIB W/C/O CONCERN THAT COLOSTOMY BAG IS LEAKING AND TO CHECK FOR INFECTION. PT WAS D/C FROM FLOOR YESTERDAY. PT WAS HERE AND HAD SURGERY TO REMOVE MASS FROM COLON ON TUESDAY. COLOSTOMY BAG WAS PLACED NOTED ON LLQ ALONG WITH J/P DRAIN THAT IS TO BE TAKEN OUT BY PCP, APPOINTMENT IS SET. SEROSANGUINEOUS DRAINAGE NOTED IN J/P DRAIN. PT DENIES ANY REDNESS, SWELLING, OR PUSS AT SITE. SITE LOOKS CLEAN UPON ASSESSMENT, NO LEAKAGE NOTED. PT AAOX4, ON RA. AMBULATORY WITH STEADY GAIT. PMH: COLON SX RX: NORCO, AND TWO FOR GAS AND CONSTIPATION BUT CANNOT REMEMBER NKA
--- NOTE | 2018-12-15 15:50 | NUR ---
COLOSTOMY BAG REMOVED. SITE CLEANED, STOMA REID RED. CHINMAY WELL APPROXIMATED. NEW BAG PUT IN PLACE PER DR. GAO'S ORDER.
[2018-12-15 15:57] VITALS: BP 118/82
== END 2018-12-15 15:58 | disposition home or self-care (01) ==
LOC: MED 14:29
DX: K94.03 Colostomy malfunction (principal); Z79.899 Other long term (current) drug therapy; Z79.891 Long term (current) use of opiate analgesic
CPT/HCPCS: 99284

== ENCOUNTER 2019-01-15 16:56 | Emergency (ER) | payer MEDICAID ==
[~2019-01-15] VITALS: Ht 167.6 cm; Wt 62.8 kg
[2019-01-15 17:31] VITALS: BP 143/61
[2019-01-15 17:57] LABS: BASOPHILS % (AUTO) 0.8 % (0.0-2.0); EOSINOPHILS # (AUTO) 0.1 K/uL (0-0.4); EOSINOPHILS % (AUTO) 2.9 % (0.0-4.0); HEMATOCRIT 30.9 % (36-48); HEMOGLOBIN 9.9 g/dL (12.0-16.0); LYMPHOCYTES % (AUTO) 23.1 % (20.5-51.1); MEAN CORPUSCULAR HEMOGLOBIN 27 pg (27-31); MEAN CORPUSCULAR HGB CONC 32 g/dL (33-37); MONOCYTES # (AUTO) 0.4 K/uL (0.8-1.0); MONOCYTES % (AUTO) 9.2 % (1.7-9.3); NEUTROPHILS # (AUTO) 2.7 K/uL (1.8-7.7); PLATELET COUNT (AUTO) 257 K/uL (140-450); RED BLOOD CELL COUNT(AUTO) 3.67 MIL/uL (4.20-5.40); RED CELL DISTRIBUTION WIDTH 16.2 % (11.6-13.7); WHITE BLOOD COUNT (AUTO) 4.3 K/uL (4.8-10.8)
[2019-01-15 18:28] LABS: ANION GAP 11.1 (8-16); CARBON DIOXIDE 28.6 mmol/L (21-32); CREATININE 0.6 mg/dL (0.6-1.3); POTASSIUM 3.7 mmol/L (3.5-5.1)
[2019-01-15 18:33] LABS: ALBUMIN 3.4 g/dL (3.4-5.0); TOTAL BILIRUBIN 0.1 mg/dL (0.0-1.0)
--- NOTE | 2019-01-15 19:35 | NUR ---
PT TAKEN TO BED 4
--- NOTE | 2019-01-15 19:55 | NUR ---
PT TO ED C/O RUQ PAIN WITH N/V. ABD IS SOFT WITH NO DISTENTION NOTED. BOWEL SOUNDS PRESENT. OSTOMY NOTED. NO S/S OF INFECTION OF STOMA SITE. PT ALSO REPORTING DIZINESS. PT PLACED INTO BED, PENDING MD ENCISO.
--- NOTE | 2019-01-15 20:21 | NUR ---
Dr. Brar evaluating patient at bedside.
[2019-01-15] MEDS ORDERED: MECLIZINE 25 MG TAB PO ONE (20:25)
[2019-01-15] MEDS ORDERED: ONDANSETRON 4 MG ODT PO ONE (20:25)
[2019-01-15 21:46] VITALS: BP 138/73
--- NOTE | 2019-01-15 21:46 | NUR ---
Patient discharged with v/s stable. Written and verbal after care instructions given and explained. Patient alert, oriented and verbalized understanding of instructions. Ambulatory with steady gait. All questions addressed prior to discharge. ID band removed. Patient advised to follow up with PMD. Rx of MECLIZINE, ZOFRAN given. Patient educated on indication of medication including possible reaction and side effects. Opportunity to ask questions provided and answered.
== END 2019-01-15 21:46 | disposition home or self-care (01) ==
LOC: MED 16:56
DX: H81.10 Benign paroxysmal vertigo, unspecified ear (principal)
CPT/HCPCS: 36415; 80053; 81002; 81025; 83690; 85025; 99283; J8597; Q0162

== ENCOUNTER 2019-05-17 18:21 | Emergency (ER) | payer MEDICAID, OTHER ==
[~2019-05-17] VITALS: Ht 167.6 cm; Wt 67.1 kg
[2019-05-17 18:34] VITALS: BP 134/102
--- NOTE | 2019-05-17 19:08 | NUR ---
PT CAME IN C/O OF EPIGASTRIC PAIN X3 HOURS. PAIN LEVEL 10/10, BURNING SENSATION. PT IS NAUSEA AND VOMITTING. NO DIARRHEA. MED HX: COLON CANCER AND VITAMIN D DEFICIENCY. PT WAS DIAGNOSED WITH COLON CANCER NOVEMBER 2018. PT HAS BEEN GETTING CHEMO SINCE FEBRUARY 2019. LAST CHEMO SESSION WAS MAY 15. SAFETY MEASURES IN PLACE. WILL CONTINUE TO MONITOR. WAITING FOR ERMD TO EVALUATE PT
[2019-05-17] MEDS ORDERED: MORPHINE SULFATE 4 MG/ML SYR IVP ONE (19:10)
[2019-05-17] MEDS ORDERED: ONDANSETRON 4 MG/2 ML VIAL IVP ONE (19:10)
[2019-05-17] MEDS ORDERED: NACL 0.9% 1,000 ML IV ONE (19:10)
--- NOTE | 2019-05-17 19:20 | NUR ---
PT VOMITED TWICE. WILL CONTINUE TO MONITOR.
[2019-05-17 19:38] LABS: APPEARANCE,URINE HAZY (CLEAR); BILIRUBIN,URINE NEGATIVE (NEGATIVE); BLOOD, URINE NEGATIVE (NEGATIVE); COLOR,URINE YELLOW (YELLOW); LEUKOCYTE ESTERASE ,URINE NEGATIVE (NEGATIVE); NITRITE, URINE NEGATIVE (NEGATIVE); PH,URINE 8.5 (5.0-9.0); UGLUCOSE NEGATIVE (NEGATIVE)
--- NOTE | 2019-05-17 19:40 | NUR ---
PT DOES NOT C/O OF NAUSEA OR PAIN AFTER MEDICATIONS WERE GIVEN.
[2019-05-17 19:43] LABS: HEMATOCRIT 29.9 % (36-48); HEMOGLOBIN 9.6 g/dL (12.0-16.0); LYMPHOCYTES # (AUTO) 0.3 K/uL (2.5-16.5); LYMPHOCYTES % (AUTO) 4.9 % (20.5-51.1); MEAN CORPUSCULAR HEMOGLOBIN 27 pg (27-31); MEAN CORPUSCULAR HGB CONC 32 g/dL (33-37); MEAN CORPUSCULAR VOLUME 82.6 fL (80-94); MONOCYTES # (AUTO) 0.4 K/uL (0.8-1.0); MONOCYTES % (AUTO) 5.7 % (1.7-9.3); NEUTROPHILS # (AUTO) 5.8 K/uL (1.8-7.7); NEUTROPHILS % (AUTO) 89.4 % (42.2-75.2); PLATELET COUNT (AUTO) 234 K/uL (140-450); RED BLOOD CELL COUNT(AUTO) 3.62 MIL/uL (4.20-5.40); RED CELL DISTRIBUTION WIDTH 22.8 % (11.6-13.7); WHITE BLOOD COUNT (AUTO) 6.5 K/uL (4.8-10.8)
[2019-05-17 19:50] LABS: ANION GAP 16.4 (8-16); CARBON DIOXIDE 25.6 mmol/L (21-32); CREATININE 0.8 mg/dL (0.6-1.3)
[2019-05-17 19:57] LABS: ALBUMIN 3.8 g/dL (3.4-5.0); TOTAL BILIRUBIN 0.3 mg/dL (0.0-1.0)
--- NOTE | 2019-05-17 20:03 | NUR ---
PT RETURN FROM CT
[2019-05-17] MEDS ORDERED: DICYCLOMINE 20 MG/2 ML VIAL IM ONE (20:20)
--- NOTE | 2019-05-17 20:21 | NUR ---
PT C/O OF PAIN RETURNING. PAIN LEVEL 05/23. ERMD NOTIFIED.
[2019-05-17] MEDS ORDERED: DICYCLOMINE HCL LIQUID 20 MG, ALUMINUM HYD/MAG/SIMETHICONE 30 ML, LIDOCAINE VISCOUS 2% ... PO ONE ×3 (20:35)
[2019-05-17 21:00] VITALS: BP 138/88
--- NOTE | 2019-05-17 21:00 | NUR ---
Patient discharged with v/s stable. Written and verbal after care instructions given and explained. Patient alert, oriented and verbalized understanding of instructions. Ambulatory with steady gait. All questions addressed prior to discharge. ID band removed. Patient advised to follow up with PMD. Rx of MYLANTA AND MIRALAX given. Patient educated on indication of medication including possible reaction and side effects. Opportunity to ask questions provided and answered.
== END 2019-05-17 21:00 | disposition home or self-care (01) ==
LOC: MED 18:21
DX: K59.00 Constipation, unspecified (principal); Z85.038 Personal history of other malignant neoplasm of large intestine; Z98.890 Other specified postprocedural states; Z79.899 Other long term (current) drug therapy
CPT/HCPCS: 36415; 74176; 80053; 81003; 81025; 83690; 85025; 96361; 96372; 96374; 96375; 99284; J0500; J2270; J2405; J7030

== ENCOUNTER 2019-10-16 05:59 | Day surgery (SDC) | payer OTHER ==
[~2019-10-16] VITALS: Ht 167.6 cm; Wt 69.4 kg
[2019-10-16] MEDS ORDERED: LIDOCAINE/EPI MPF 1%1:200000 30 ML VIAL INJ ONE (08:45)
[2019-10-16] MEDS ORDERED: BUPIVACAINE-MPF/EPI 0.25% 30 ML VIAL INJ ONE (08:45)
[2019-10-16] MEDS ORDERED: ONDANSETRON 4 MG/2 ML VIAL IVP PRN (09:55)
[2019-10-16] MEDS ORDERED: HYDROcodone/APAP 5/325 MG 1 TAB TAB PO PRN (09:55)
[2019-10-16] MEDS ORDERED: MORPHINE SULFATE 2 MG/ML SYR IVP PRN (09:55)
[2019-10-16] MEDS ORDERED: HYDROmorphone 1 MG/ML AMP IVP PRN (09:55)
[2019-10-16] MEDS ORDERED: MORPHINE SULFATE 4 MG/ML SYR IV PRN (09:55)
== END 2019-10-16 10:30 | disposition home or self-care (01) ==
LOC: MDS 05:59 → MMU 06:10 → MDS 10:30
PROVIDERS: ATTEND Surgery
DX: Z45.2 Encounter for adjustment and management of vascular access device (principal); Z85.038 Personal history of other malignant neoplasm of large intestine
CPT/HCPCS: 36590; 71045; J0690; J2001; J3490; J7060; J7120

== ENCOUNTER 2019-10-26 08:10 | Day surgery (SDC) | payer OTHER ==
[~2019-10-26] VITALS: Ht 167.6 cm; Wt 68.9 kg
[2019-10-26] MEDS ORDERED: fentaNYL 0.05 MG/ML VIAL ONE (10:18)
[2019-10-26] MEDS: fentaNYL 0.05 MG/ML VIAL IVP ONE (10:41)
[2019-10-26] MEDS: LIDOCAINE 2% 100 MG/5 ML UJET TP ONE (10:44)
== END 2019-10-26 11:20 | disposition home or self-care (01) ==
LOC: MMU 08:10 → MDS 08:10
PROVIDERS: ATTEND Surgery
DX: Z43.3 Encounter for attention to colostomy (principal); Z85.038 Personal history of other malignant neoplasm of large intestine; Z79.899 Other long term (current) drug therapy
CPT/HCPCS: 44388; 45330; J3010

== ENCOUNTER 2019-10-30 00:10 | Inpatient (IN) | payer OTHER ==
[~2019-10-30] VITALS: Ht 167.6 cm; Wt 68.0 kg
[2019-10-30] MEDS ORDERED: DEXAMETHASONE 4 MG/ML VIAL ONE (07:35)
[2019-10-30] MEDS ORDERED: PROPOFOL 200 MG/20 ML VIAL IV ONE (07:35)
[2019-10-30] MEDS ORDERED: SUCCINYLCHOLINE CHLORIDE 200 MG/10 ML VIAL IVP ONE (07:35)
[2019-10-30] MEDS ORDERED: ROCURONIUM 50 MG/5 ML VIAL IV ONE (07:35)
[2019-10-30] MEDS ORDERED: SEVOFLURANE 250 ML BTL INH ONE (07:35)
[2019-10-30] MEDS ORDERED: ONDANSETRON 4 MG/2 ML VIAL ONE (07:35)
[2019-10-30] MEDS ORDERED: MIDAZOLAM 2 MG/2 ML VIAL ONE (07:43)
[2019-10-30] MEDS ORDERED: MEPERIDINE 50 MG/ML SYR ONE (07:43)
[2019-10-30] MEDS ORDERED: fentaNYL 0.05 MG/ML VIAL ONE (07:44)
[2019-10-30] MEDS ORDERED: LIDOCAINE 1% 500 MG/50 ML VIAL ONE (08:00)
[2019-10-30] MEDS ORDERED: BUPIVACAINE-MPF/EPI 0.25% 30 ML VIAL INJ ONE (08:00)
[2019-10-30] MEDS ORDERED: HYDROmorphone 1 MG/ML AMP IVP PRN (08:30)
[2019-10-30] MEDS ORDERED: ONDANSETRON 4 MG/2 ML VIAL IVP PRN ×3 (08:30→12:20)
[2019-10-30] MEDS ORDERED: diphenhydrAMINE 50 MG/ML VIAL IVP PRN (08:30)
[2019-10-30] MEDS ORDERED: MEPERIDINE 25 MG/ML SYR IVP PRN (08:30)
[2019-10-30] MEDS ORDERED: DEXT 5% /NACL 0.9% 1,000 ML IV SCH (12:07)
[2019-10-30] MEDS ORDERED: HYDROcodone/APAP 5/325 MG 1 TAB TAB PO PRN (12:20)
[2019-10-30] MEDS ORDERED: metroNIDAZOLE 500 MG/NS PREMIX 100 ML IV ONE (12:23)
--- NOTE | 2019-10-30 13:30 | NUR ---
PATIENT ARRIVED ON THE UNIT FROM PACU. RECEIVED REPORT FROM PRATIMA RUTHERFORD. PT AWAKE AND ALERT. PT AT BEDSIDE. VITALS 131/81 HR 70 SPO2 100% ON ROOM AIR. TEMP. 97.6. PT DENIES ANY PAIN. PATIENT HAS LAPROSCOPIC INCISIONS WITH DERMABOND. ALL SAFETY MEASURES ARE IN PLACE WILL CONTINUE TO MONITOR.
--- NOTE | 2019-10-30 14:07 | NUR ---
PCP Appointment: JUAN PABLO contacted Sam from Dr. Kelsey Montes's office to arrange hospital follow up for patient [phone]. JUAN PABLO made hospital follow up appointment for 0900 on 11/09/2019 @ [address] [place] [address]. Appointment was left in patient's chart to be given at discharge. No further needs identified.
--- NOTE | 2019-10-30 14:44 | NUR ---
Assessment/Discharge Plan Name: Og Thompson Home Relationship: hsuband Pre-Admission Living Arrangements: Lives with Other Other: Og Thompson Prior ADL Independent Healthcare Decision Maker: Patient Advance Directive No Tentative Discharge Plan Summary: Patient is a 49 year old female, admitted for colon cancer. I met with patient at bedside. Patient alert and oriented x4. Patient speaks Fijian. Patient lives at home with her and plans to return home upon discharge. Tomy's pcp is Kelsey Caballero. She does not have any difficulty filling her prescriptions. Patient reported this is the first time she is diagnosed with cancer. She stated she has support from her family and friends. She told me she does not need any community resources at this time. I provided her with my contact information. Party Host and/or [employer] will follow up as needed. Signature: LACIE Buchanan Date: Oct 30, 2019
[2019-10-30] MEDS: LACTATED RINGERS 1,000 ML IV SCH ×3 (15:01→23:40)
[2019-10-30] MEDS: GABAPENTIN 300 MG CAP PO SCH ×2 (15:01→21:11)
--- NOTE | 2019-10-30 15:46 | NUR ---
FREQUENT ROUNDING ON PT PT APPEARS STABLE AND IN NO APPARENT DISTRESS. ALL SAFETY MEASURES ARE IN PLACE WILL CONTINUE TO MONITOR. PT FAMILY AT BEDSIDE.
[2019-10-30] MEDS: IBUPROFEN 400 MG TAB PO SCH ×2 (16:42→21:11)
[2019-10-30] MEDS: ACETAMINOPHEN 325 MG TAB PO SCH ×2 (16:43→21:11)
[2019-10-30 16:45] VITALS: BP 134/68
--- NOTE | 2019-10-30 19:23 | NUR ---
ENDORSED PT TO PM RN PT APPEARS STABLE AND IN NO APPARENT DISTRESS. ALL SAFETY MEASURES ARE IN PLACE PT AT BEDSIDE. IVF INFUSING IV SITE PATENT AND SHOWS NO SIGNS OF INFILTRATION ON INFLAMMATION. PT ON TELE MONITORING. PT HAS CORRAL CATH IN PLACE. PT SURGICAL WOUND DRESSING DRY AND INTACT.
--- NOTE | 2019-10-30 19:30 | NUR ---
RECEIVED BEDSIDE REPORT FROM AM SHIFT KRISH LONDON, FOR PT'S CONTINUITY OF CARE. PT IS AAO X 4, WITH FAMILY MEMBER AT BEDSIDE, IS ON ROOM AIR, ON RADIO DIRECTOR, HAS LEFT AC 22G WITH LR AT 120ML/HR, STATES PAIN 7/10, REFUSED PAIN MEDICATION WHEN OFFERED, FEELS NAUSEOUS, OFFERED ANTI NAUSEA MEDICATION. EXPLAINED TO PT AND FAMILY MEMBER THE FIRESETTER ROUTINE , THEY VERBALIZED UNDERSTANDING. SAFETY MEASURES IN PLACE. CALL LIGHT IS WITHIN REACH. WILL MONITOR PT THROUGHOUT SHIFT.
[2019-10-30 20:00] VITALS: BP 110/69
--- NOTE | 2019-10-30 21:16 | NUR ---
VS CHECKED AND CHARTED. ADMINISTERED SCHEDULED PO MEDICATIONS ORDERED. PT REFUSED ANTI NAUSEA MEDICATION. PT STATES TOLERABLE PAIN OF 6/10, REFUSED ANY OTHER PAIN MEDICATION.
[2019-10-30] MEDS ORDERED: metroNIDAZOLE 500 MG/NS PREMIX 100 ML IV SCH (23:00)
--- NOTE | 2019-10-30 23:40 | NUR ---
ADMINISTERED IVF LR ORDERED. PT DENIES ANY PAIN JUST DISCOMFORT WHEN REPOSITIONING. REMINDED PT TO USE CALL LIGHT WHENEVER SHE NEEDED ANYTHING. PT VERBALIZED UNDERSTANDING.
[2019-10-31] VITALS: BP 98/64
--- NOTE | 2019-10-31 02:00 | NUR ---
PT ASLEEP WITH NO SIGNS OF DISTRESS. WILL CONTINUE TO MONITOR PT.
[2019-10-31 04:00] VITALS: BP 97/61
[2019-10-31] MEDS: GABAPENTIN 300 MG CAP PO SCH ×3 (04:45→20:21)
--- NOTE | 2019-10-31 04:45 | NUR ---
VS CHECKED AND CHARTED. ADMINISTERED SCHEDULED PO MEDICATION ORDERED. PT TOLERATED IT WELL. PT DENIES ANY PAIN AT THIS TIME. WILL CONTINUE TO MONITOR PT.
[2019-10-31] MEDS ORDERED: ceFAZolin 1,000 MG VIAL ONE (06:01)
--- NOTE | 2019-10-31 06:12 | NUR ---
ADMINISTERED SCHEDULED IV ABX ORDERED. PT ASLEEP WITH NO SIGNS OF DISTRESS.
--- NOTE | 2019-10-31 06:34 | NUR ---
D/C CORRAL CATH. DEFLATED BALLOON BY REMOVING 10CC OF STERILE WATER. EMPTIED 150CC OF CLEAR/YELLOW URINE. PT TOLERATED WELL. CALL LIGHT IS WITHIN REACH.
[2019-10-31] MEDS: IBUPROFEN 400 MG TAB PO SCH ×4 (06:47→20:21)
[2019-10-31] MEDS: ACETAMINOPHEN 325 MG TAB PO SCH ×4 (06:47→20:21)
[2019-10-31 06:49] LABS: BASOPHILS % (AUTO) 0.3 % (0.0-2.0); HEMATOCRIT 24.8 % (36-48); HEMOGLOBIN 8.1 g/dL (12.0-16.0); LYMPHOCYTES # (AUTO) 0.9 K/uL (2.5-16.5); LYMPHOCYTES % (AUTO) 15.5 % (20.5-51.1); MEAN CORPUSCULAR HEMOGLOBIN 26 pg (27-31); MEAN CORPUSCULAR HGB CONC 33 g/dL (33-37); MEAN CORPUSCULAR VOLUME 79.3 fL (80-94); MONOCYTES # (AUTO) 0.5 K/uL (0.8-1.0); MONOCYTES % (AUTO) 9.8 % (1.7-9.3); NEUTROPHILS # (AUTO) 4.1 K/uL (1.8-7.7); NEUTROPHILS % (AUTO) 74.4 % (42.2-75.2); PLATELET COUNT (AUTO) 239 K/uL (140-450); RED BLOOD CELL COUNT(AUTO) 3.13 MIL/uL (4.20-5.40); RED CELL DISTRIBUTION WIDTH 19.4 % (11.6-13.7); WHITE BLOOD COUNT (AUTO) 5.5 K/uL (4.8-10.8)
[2019-10-31] MEDS: metroNIDAZOLE 500 MG/NS PREMIX 100 ML IV SCH ×3 (06:50→23:20)
--- NOTE | 2019-10-31 06:50 | NUR ---
ADMINISTERED SCHEDULED PO AND IV ABX ORDERED. PT IS LYING DOWN ASLEEP, WOKE UP AND DENIES ANY PAIN AT THIS TIME. PT TEACHING GIVEN. PT VERBALIZED UNDERSTANDING. WILL ENDORSE TO AM SHIFT RN FOR PT'S CONTINUITY OF CARE.
[2019-10-31 07:05] LABS: ANION GAP 12.1 (8-16); CARBON DIOXIDE 26.4 mmol/L (21-32); CREATININE 0.7 mg/dL (0.6-1.3); POTASSIUM 3.5 mmol/L (3.5-5.1)
--- NOTE | 2019-10-31 07:25 | NUR ---
RECEIVED BEDSIDE REPORT FROM PM RN PT APPEARS STABLE AND IN NO APPARENT DISTRESS. ALL SAFETY MEASURES ARE IN PLACE WILL CONTINUE TO MONITOR.
[2019-10-31 08:15] VITALS: BP 109/73
--- NOTE | 2019-10-31 08:38 | NUR ---
PATIENT HAS BEEN SCREENED AND CATEGORIZED MODERATE NUTRITION RISK. PATIENT WILL BE SEEN WITHIN 3-5 DAYS OF ADMISSION. 11/01/19 11/03/[address]
[2019-10-31] MEDS: LACTATED RINGERS 1,000 ML IV SCH (08:47)
[2019-10-31] MEDS: ENOXAPARIN 40 MG/0.4 ML SYR SUBQ SCH (08:52)
--- NOTE | 2019-10-31 09:16 | NUR ---
FREQUENT ROUNDING ON PT PT APPEAR STABLE AND IN NO APPARENT DISTRESS. ALL SAFETY MEASURES ARE IN PLACE WILL CONTINUE TO MONITOR.
--- NOTE | 2019-10-31 11:53 | NUR ---
DR SHIRA HARTMAN AT BEDSIDE. PERFORMED ASSESSMENT SPOKE WITH PATIENT AND PT ANSWERED ALL QUESTIONS EDUCATED PATIENT ON ADVANCING PT DIET TO SOFT BLAND DIET. SALINE LOCKED PT PER ORDERS. PT WAS AMBULATING AROUND ROOM PT STATED SHE WAS GOING TO AMBULATE AROUND THE UNIT.
[2019-10-31 12:56] VITALS: BP 117/64
--- NOTE | 2019-10-31 13:25 | NUR ---
FREQUENT ROUNDING ON PT PT APPEARS STABLE AND IN NO APPARENT DISTRESS. ALL SAFETY MEASURES ARE IN PLACE WILL CONTINUE TO MONITOR.
--- NOTE | 2019-10-31 15:57 | NUR ---
FREQUENT ROUNDING ON PT PT APPEARS STABLE AND IN NO APPARENT DISTRESS ALL SAFETY MEASURES ARE IN PLACE WILL CONTINUE TO MONITOR.
[2019-10-31 16:00] VITALS: BP 116/64
--- NOTE | 2019-10-31 16:13 | NUR ---
DISCHARGE PLANNIN49 Y/O FEMALE FROM HOME, WHO CAME IN FOR COLOSTOMY REVERSAL TAKEDOWN ELECTIVE SURGERY. PAST MEDICAL HISTORY OF OBSTRUCTING SIGMOID COLON CANCER, S/P ABIOLA'S PROCEDURE. CURRENT LABS INCLUDE 5.5, H/H 8.1/24.8 AND C REACTIVE PROTEIN 4.7. POST OP DAY #1 S/P LAPAROSCOPIC TAKEDOWN REVERSAL OF COLOSTOMY, LYSIS OF ADHESIONS AND A SPLENIC FLEXURE MOBILIZATION. ON METRONIDAZOLE AND CEFAZOLIN IV. PLAN IS TO GO BACK HOME ONCE STABLE.
--- NOTE | 2019-10-31 19:30 | NUR ---
ENDORSED PT TO PM RN PT APPEARS STABLE AND IN NO APPARENT DISTRESS. PT AT BEDSIDE. ALL SAFETY MEASURES ARE IN PLACE
--- NOTE | 2019-10-31 19:31 | NUR ---
RECEIVED BEDSIDE REPORT FROM AM SHIFT KRISH LONDON, FOR PT'S CONTINUITY OF CARE. PT IS AAO X 4, WITH SPOUSE AT BEDSIDE, IS ON ROOM AIR, ON ASSOCIATE CHIEF NURSE, HAS LEFT AC 22G ,SL, PATENT, INTACT AND ASYMPTOMATIC, DENIED PAIN AT THIS TIME. SAFETY MEASURES IN PLACE. CALL LIGHT IS WITHIN REACH. WILL MONITOR PT THROUGHOUT SHIFT.
[2019-10-31 20:00] VITALS: BP 93/66
--- NOTE | 2019-10-31 20:21 | NUR ---
GIVEN MOTRIN, GABAPENTIN, TYLENOL MD ORDERED. PT TOLERATED WELL.
--- NOTE | 2019-10-31 22:30 | NUR ---
GIVEN ANCEF MD ORDERED. PT TOLERATE WELL.
--- NOTE | 2019-10-31 23:20 | NUR ---
GIVEN FLAGYL MD ORDERED. PT TOLERATED WELL.
[2019-11-01] VITALS: BP 93/54
--- NOTE | 2019-11-01 00:10 | NUR ---
VS CHECKED, WITHIN PT'S BASELINE. WILL CONTINUE TO MONITOR.
--- NOTE | 2019-11-01 02:33 | NUR ---
PT SLEEPING IN BED. NO ACUTE DISTRESS NOTED.
[2019-11-01 04:00] VITALS: BP 100/69
[2019-11-01] MEDS: GABAPENTIN 300 MG CAP PO SCH ×2 (04:24→13:42)
--- NOTE | 2019-11-01 04:24 | NUR ---
GIVEN GABAPENTIN MD ORDERED. PT TOLERATED WELL. WILL CONTINUE TO MONITOR.
--- NOTE | 2019-11-01 06:03 | NUR ---
GIVEN ANCEF MD ORDERED. PT HAD BM. CHANGED PT. PT TOLERATED WELL.
[2019-11-01] MEDS: ACETAMINOPHEN 325 MG TAB PO SCH ×3 (06:33→16:37)
[2019-11-01] MEDS: IBUPROFEN 400 MG TAB PO SCH ×3 (06:33→16:37)
[2019-11-01] MEDS: metroNIDAZOLE 500 MG/NS PREMIX 100 ML IV SCH ×2 (06:33→16:37)
--- NOTE | 2019-11-01 06:33 | NUR ---
GIVEN TYLENOL, MOTRIN, AND FLAGYL MD ORDERED. PT TOLERATED WELL.
--- NOTE | 2019-11-01 07:05 | NUR ---
RECEIVED BEDSIDE SHIFT REPORT FROM NIGHT NURSE, PATIENT IS IN STABLE CONDITION, CALL LIGHT WITHIN REACH.
[2019-11-01 07:23] LABS: ANION GAP 11.7 (8-16); CARBON DIOXIDE 25.8 mmol/L (21-32); CREATININE 0.6 mg/dL (0.6-1.3); POTASSIUM 3.5 mmol/L (3.5-5.1)
[2019-11-01 08:00] VITALS: BP 115/71
[2019-11-01] MEDS: ENOXAPARIN 40 MG/0.4 ML SYR SUBQ SCH (08:18)
--- NOTE | 2019-11-01 10:48 | NUR ---
DOING ROUNDS, PATIENT IN BED TALKING TO HER , NO DISTRESS NOTED, CALL LIGHT WITHIN REACH. WILL CONTINUE TO MONITOR.
[2019-11-01 12:00] VITALS: BP 118/79
--- NOTE | 2019-11-01 13:05 | NUR ---
PATIENT AMBULATING WITH AT HER SIDE, STEADY GAIT. APPROX 25 FT. NO DISTRESS NOTED. VITALS ARE STABLE , WILL CONTINUE TO MONITOR.
--- NOTE | 2019-11-01 15:35 | NUR ---
AT THE BEDSIDE WITH DR HARTMAN, TALKING TO PATIENT ABOUT PLAN TO DISCHARGE. PATIENT IN STABLE CONDITION, EDUCATED PATIENT ABOUT THE IMPORTANCE OF USING THE INCENTIVE SPIROMETER. PATIENT IS UP TO 900, ENCOURAGING PATIENT TO REACH TO 1000. WILL PREPARE PATIENT FOR DISCHARGE AT THIS TIME.
[2019-11-01] MEDS ORDERED: ACET-8386 PO (16:19)
[2019-11-01] MEDS ORDERED: GABA300C PO (16:20)
--- NOTE | 2019-11-01 17:28 | NUR ---
PATIENT EDUCATED ON DISCHARGE INSTRUCTIONS, PATIENT VERBALIZED UNDERSTAND TO FOLLOW UP WITH PATRICIA OMALLEY AND DR HARTMAN, PATIENT WILL CNS MEDICATIONS. ALL QUESTIONS WERE ANSWERED. PATIENT IS TO GET DRESS AND COLLECT ALL BELONGINGS. PATIENT'S IS AT THE BEDSIDE WITH PATIENT.
--- NOTE | 2019-11-01 17:55 | NUR ---
PATIENT IS DRESSED AND READY FOR DISCHARGE, PATIENT IS IN STABLE CONDITION. ID WRIST BANDS WAS REMOVED FROM PATIENT, IV WAS REMOVED WITH LUMEN INTACT, NO REDNESS AND SWELLING NOTED. PATIENT HAS BELONGINGS AND WITH ESCORTED VIA AMBULATION WITH TO LOBBY. PATIENT IS DISCHARGED AT THIS TIME.
== END 2019-11-01 17:55 | disposition home or self-care (01) | DRG 223 ==
LOC: MMU 06:00 → MTU 09:31
PROVIDERS: ADMIT Surgery; ATTEND Surgery
PROC: 0DSM4ZZ Reposition Descending Colon, Percutaneous Endoscopic Approach (ICD-10-PCS; 2019-10-30)
PROC: 0DNM4ZZ Release Descending Colon, Percutaneous Endoscopic Approach (ICD-10-PCS; 2019-10-30)
PROC: 0DN84ZZ Release Small Intestine, Percutaneous Endoscopic Approach (ICD-10-PCS; 2019-10-30)
PROC: 0DNU4ZZ Release Omentum, Percutaneous Endoscopic Approach (ICD-10-PCS; 2019-10-30)
PROC: 0DJD8ZZ Inspection of Lower Intestinal Tract, Via Natural or Artificial Opening Endoscopic (ICD-10-PCS; principal; 2019-10-30 07:30)
DX: K94.03 Colostomy malfunction (principal); K56.600 Partial intestinal obstruction, unspecified as to cause; C18.7 Malignant neoplasm of sigmoid colon; G62.9 Polyneuropathy, unspecified; K66.0 Peritoneal adhesions (postprocedural) (postinfection); E86.9 Volume depletion, unspecified; Y83.2 Surgical operation with anastomosis, bypass or graft as the cause of abnormal reaction of the patient, or of later complication, without mention of misadventure at the time of the procedure; Z82.49 Family history of ischemic heart disease and other diseases of the circulatory system; Z83.3 Family history of diabetes mellitus; Z84.89 Family history of other specified conditions
CPT/HCPCS: 36415; 71045; 80048; 85025; 86140; 86886; 86900; 86901; 87081; 93005; J0330; J0690; J1100; J1650; J2001; J2175; J2250; J2405; J2704; J3010; J3490; J7060; J7120; Q0092

== ENCOUNTER 2019-11-05 06:46 | Inpatient (IN) | payer OTHER ==
[~2019-11-05] VITALS: Ht 167.6 cm; Wt 63.5 kg
[~2019-11-05 06:46] MED LIST changes: +ACET-8386 PO; +GABA300C PO; -HYDR-5123 PO
--- NOTE | 2019-11-05 06:46 | NUR ---
49 Y/O FEMALE BIBA C/O ABD PAIN X TODAY. PT GOT A REVERSE COLONOSTOMY REVERSAL SURGERY ON TUESDAY D/T COLON CANCER AND PT GOT D/C TUESDAY. PT STATES SHE HASNT HAD A BM SINCE TUESDAY AND STARTED HAVING SHARP ABD PAIN X TODAY. PT STATES THE PAIN IS MORE IN THE EPIGASTRIC REGION. BS ACTIVE IN ALL QUADS. ABD IS SOFT, ROUND, AND TENDERNESS ON EPIGASTRIC REGION. N,V (1 EPISODE), PT STATES SHE WAS ABLE TO EAT FINE YESTERDAY. A & O X4. WELSH SPEAKING. VSS. RATES PAIN LEVEL 7/10 AND DESCRIBE IT SHARP. [facility] STATES THEY GAVE HER 4MG ZOFRAN ODT. NKA. PMH: NUEROPATHY, COLON CANCER, PROTEIN C DEFICIENCY.
[2019-11-05 06:57] VITALS: BP 126/90
--- NOTE | 2019-11-05 07:15 | NUR ---
RECEIVED REPORT FROM SAMREEN RUTHERFORD .
--- NOTE | 2019-11-05 07:17 | NUR ---
Pt report given to KRISH SALVADOR. Transfer of care at this time.
--- NOTE | 2019-11-05 07:25 | NUR ---
DR OLIVERA AT BEDSIDE.
[2019-11-05] MEDS ORDERED: MORPHINE SULFATE 4 MG/ML SYR IVP ONE (07:30)
[2019-11-05] MEDS ORDERED: NACL 0.9% 1,000 ML IV SCH (07:30)
[2019-11-05] MEDS ORDERED: ONDANSETRON 4 MG/2 ML VIAL IVP ONE (07:30)
--- NOTE | 2019-11-05 07:45 | NUR ---
LABS AT BEDSIDE
[2019-11-05 07:52] LABS: BASOPHILS % (AUTO) 0.6 % (0.0-2.0); EOSINOPHILS % (AUTO) 0.4 % (0.0-4.0); HEMATOCRIT 32.8 % (36-48); HEMOGLOBIN 10.3 g/dL (12.0-16.0); LYMPHOCYTES # (AUTO) 0.4 K/uL (2.5-16.5); LYMPHOCYTES % (AUTO) 10.2 % (20.5-51.1); MEAN CORPUSCULAR HEMOGLOBIN 25 pg (27-31); MEAN CORPUSCULAR HGB CONC 32 g/dL (33-37); MEAN CORPUSCULAR VOLUME 79.5 fL (80-94); MONOCYTES # (AUTO) 0.2 K/uL (0.8-1.0); MONOCYTES % (AUTO) 5.1 % (1.7-9.3); NEUTROPHILS # (AUTO) 3.3 K/uL (1.8-7.7); NEUTROPHILS % (AUTO) 83.7 % (42.2-75.2); PLATELET COUNT (AUTO) 399 K/uL (140-450); RED BLOOD CELL COUNT(AUTO) 4.13 MIL/uL (4.20-5.40); RED CELL DISTRIBUTION WIDTH 19.5 % (11.6-13.7); WHITE BLOOD COUNT (AUTO) 3.9 K/uL (4.8-10.8)
[2019-11-05 07:59] LABS: ANION GAP 17.1 (8-16); CARBON DIOXIDE 23.6 mmol/L (21-32); CREATININE 0.6 mg/dL (0.6-1.3); POTASSIUM 3.7 mmol/L (3.5-5.1)
--- NOTE | 2019-11-05 08:00 | NUR ---
PT ON O2 INHALATION AT 2LPM /NC.
[2019-11-05 08:05] LABS: ALBUMIN 3.8 g/dL (3.4-5.0); TOTAL BILIRUBIN 0.5 mg/dL (0.0-1.0)
--- NOTE | 2019-11-05 08:06 | NUR ---
NADRS AT THIS TIME PAIN LEVEL AT 2/10.PT AWAKE AND ALERT.VS STABLE .
--- NOTE | 2019-11-05 08:19 | NUR ---
[facility]. PT AWAKE ,ALERT,ORIENTED X4.
--- NOTE | 2019-11-05 08:37 | NUR ---
Patient returned from CT and placed in bed 4.
--- NOTE | 2019-11-05 08:38 | NUR ---
PT BACK FROM CT SCAN VIA [facility] . PAIN AT 11/23.
--- NOTE | 2019-11-05 10:08 | NUR ---
dr jones at bedside.
[2019-11-05] MEDS ORDERED: ALBUTEROL 0.083% 2.5 MG/3 ML NEBU INH PRN (10:15)
[2019-11-05] MEDS ORDERED: ONDANSETRON 4 MG/2 ML VIAL IVP PRN (10:15)
--- NOTE | 2019-11-05 10:37 | NUR ---
Pt was seen and examined by dr jones . advise for liquid to soft diet for the bowel to adjust post surgery ,pt was amenable .pt is awake ,alert ,afebrile .ambulatory with steady gait.
--- NOTE | 2019-11-05 11:07 | NUR ---
TOLERATED WATER PO WITHOUT N/V. AMBULATORY TO RESTROOM.
--- NOTE | 2019-11-05 11:15 | NUR ---
dr rosen at bedside .pt pain at 04/23.
[2019-11-05] MEDS ORDERED: HYDROcodone/APAP 7.5/325 MG 1 TAB PO ONE (11:20)
--- NOTE | 2019-11-05 12:40 | NUR ---
pain at lower abdomen at 06/23 dr rosen [facility].
--- NOTE | 2019-11-05 13:05 | NUR ---
Patient will be admitted to care of Dr pinto. Admited to med surg. Will go to room. Belongings list completed. Report to . Addendum: 11/05/19 at 1336 by MEDRI PT TAKEN TO 108-A, REPORT TO KRISH ALMEIDA.
--- NOTE | 2019-11-05 13:15 | NUR ---
Pt admitted to room 108A from ED via gurney. Able to amb from gurney to bed with standby assist. Received report from Mark ED RN. Pt aoox4, micronesian-speaking. Og, who is fluent in thai & micronesian, at bedside providing translation thai/micronesian per pt request. Medical hx provided by pt & spouse. Left abd sx site dry & intact with 6 ev. Right AC IV 20G intact & asymptomatic, flushed with 10ml NS. Pt oriented to room & unit, verbalized understanding. Call light within reach.
[2019-11-05] MEDS: DEXT 5% /NACL 0.9% 1,000 ML IV SCH ×2 (13:30→23:45)
[2019-11-05] MEDS: MORPHINE SULFATE 4 MG/ML SYR IVP PRN ×3 (13:33→22:46)
[2019-11-05 15:37] VITALS: BP 151/87
[2019-11-05 16:00] VITALS: BP 137/83
--- NOTE | 2019-11-05 17:45 | NUR ---
Pt ambulating in hallway with steady gait, standby assist provided by spouse. No signs of distress. Able to navigate IV pole with good safety awareness.
--- NOTE | 2019-11-05 19:20 | NUR ---
Report given to pm nurse Leong.
--- NOTE | 2019-11-05 19:30 | NUR ---
ASSUMED CARE OF PATIENT, AWAKE, ALERT AND ORIENTED. AMBULATING IN HALLWAY WITH . VERBALIZED JUST VOMITTED, OFFERED ZOFRAN REFUSED AT THIS TIME. CALL LIGHT WITHIN REACH.
--- NOTE | 2019-11-05 20:00 | NUR ---
CARE BOARD UPDATED. PLAN OF CARE DISCUSSED WITH PATIENT AND FAMILY MEMBER AT BEDSIDE, VERBALIZED UNDERSTANDING WELL. CALL LIGHT WITHIN REACH.
--- NOTE | 2019-11-05 22:00 | NUR ---
SMALL BOWEL FOLLOW THRU DONE BUT RADIOLOGIST WANTS TO TAKEN ANOTHER XRAY AT 0600-11/06. PATIENT MADE AWARE. CALL LIGHT WITHIN REACH. AT BEDSIDE.
--- NOTE | 2019-11-06 00:15 | NUR ---
VITALS SIGNS STABLE. AFEBRILE. NO COMPLAINS.SLEEPING WELL, EASILY AROUSABLE. CALL LIGHT WITHIN REACH.
[2019-11-06 00:35] VITALS: BP 126/86
[2019-11-06] MEDS: MORPHINE SULFATE 2 MG/ML SYR IVP PRN ×2 (01:49→22:02)
--- NOTE | 2019-11-06 02:00 | NUR ---
ASLEEP. PAIN MEDS GIVEN EARLIER. CALL LIGHT WITHIN REACH.
[2019-11-06] MEDS: MORPHINE SULFATE 4 MG/ML SYR IVP PRN (04:47)
--- NOTE | 2019-11-06 04:47 | NUR ---
PAIN MEDS GIVEN BY LOREN RUTHERFODR. CALL LIGHT WITHIN REACH.
[2019-11-06] MEDS: DEXT 5% /NACL 0.9% 1,000 ML IV SCH ×2 (06:15→12:14)
--- NOTE | 2019-11-06 07:26 | NUR ---
ENDORSED CARE AT BEDSIDE WITH JENNIFER RN, PATIENT IN STABLE CONDITION.
[2019-11-06 07:27] LABS: PROTHROMBIN TIME 9.8 secs (10.8-13.4)
--- NOTE | 2019-11-06 07:27 | NUR ---
GIVEN BEDSIDE REPORT BY BILLBOARD POSTER HELPER NURSE. PT WAS RESTING IN BED. PT IS AAOX4. SKIN IS WARM AND DRY TO TOUCH, PT ABDOMINAL DRESSING IS CLEAN AND INTACT. PT IV IS CLEAN, INTACT, AND INFUSING PER MD ORDER. BREATHING IS EVEN AND UNLABORED ON RA. NO SIGNS OF DISTRESS AT THIS TIME, NO COMPLAINTS OF PAIN AT THE MOMENT. SAFETY MEASURES REVIEWED, BED IS IN LOW POSITION AND CALL LIGHT WITHIN REACH. EDUCATED PT TO USE THE CALL LIGHT FOR ANY ASSISTANCE AND PT VERBALIZED UNDERSTANDING.
[2019-11-06 07:34] LABS: ANION GAP 12.8 (8-16); CARBON DIOXIDE 25.7 mmol/L (21-32); CREATININE 0.5 mg/dL (0.6-1.3); POTASSIUM 3.5 mmol/L (3.5-5.1)
[2019-11-06 07:42] LABS: BASOPHILS % (AUTO) 0.4 % (0.0-2.0); EOSINOPHILS # (AUTO) 0.1 K/uL (0-0.4); EOSINOPHILS % (AUTO) 1.3 % (0.0-4.0); HEMATOCRIT 25.8 % (36-48); HEMOGLOBIN 8.1 g/dL (12.0-16.0); LYMPHOCYTES # (AUTO) 0.4 K/uL (2.5-16.5); LYMPHOCYTES % (AUTO) 7.7 % (20.5-51.1); MEAN CORPUSCULAR HEMOGLOBIN 25 pg (27-31); MEAN CORPUSCULAR HGB CONC 31 g/dL (33-37); MEAN CORPUSCULAR VOLUME 79.9 fL (80-94); MONOCYTES # (AUTO) 0.5 K/uL (0.8-1.0); MONOCYTES % (AUTO) 10.6 % (1.7-9.3); NEUTROPHILS # (AUTO) 3.7 K/uL (1.8-7.7); PLATELET COUNT (AUTO) 323 K/uL (140-450); RED BLOOD CELL COUNT(AUTO) 3.23 MIL/uL (4.20-5.40); RED CELL DISTRIBUTION WIDTH 20.5 % (11.6-13.7); WHITE BLOOD COUNT (AUTO) 4.6 K/uL (4.8-10.8)
[2019-11-06 07:44] LABS: MAGNESIUM 1.9 mg/dL (1.8-2.4); PHOSPHORUS 3.5 mg/dL (2.5-4.9)
[2019-11-06 08:00] VITALS: BP 121/69
--- NOTE | 2019-11-06 08:07 | NUR ---
PATIENT HAS BEEN SCREENED AND CATEGORIZED MODERATE NUTRITION RISK. PATIENT WILL BE SEEN WITHIN 3-5 DAYS OF ADMISSION. 11/07/19 11/09/[address]
--- NOTE | 2019-11-06 09:05 | NUR ---
PT IS RESTING IN BED. NO SIGNS OF DISTRESS NOTED AT THIS TIME. BREATHING IS EVEN AND UNLABORED. SAFETY MEASURES ASSESSED, BED IS IN LOW POSITION AND CALL LIGHT WITHIN REACH. REMINDED PT TO USE CALL LIGHT FOR ANY ASSISTANCE AND THEY VERBALIZED UNDERSTANDING. WILL CONTINUE TO MONITOR.
--- NOTE | 2019-11-06 09:30 | NUR ---
PATIENT WALKING AROUND MST HALLWAYS WITH STEADY GAIT. NO DISTRESS NOTED. WILL CONTINUE TO MONITOR.
--- NOTE | 2019-11-06 11:23 | NUR ---
PLEASE CONTACT PRIMARY CARE PHYSICIAN TO SET UP YOUR FOLLOW-UP CARE: DR. BRY GOMEZ [address] [facility] [id number] PLEASE CONTACT THE CLINIC DIRECTLY TO SCHEDULE.
--- NOTE | 2019-11-06 13:10 | NUR ---
PT RESTING IN BED. NO SIGNS OF DISTRESS NOTES, DENIES PAIN AT THE MOMENT. BREATHING IS EVEN AND UNLABORED. IV IS CLEAN AND INTACT. SAFETY MEASURES ASSESSED, BED IN LOW POSITION AND CALL LIGHT WITHIN REACH. WILL CONTINUE TO MONITOR.
--- NOTE | 2019-11-06 15:15 | NUR ---
PT LYING IN BED AWAKE. DENIES PAIN AT THE MOMENT. NO SIGNS OF DISTRESS NOTED. WILL CONTINUE TO MONITOR.
[2019-11-06 16:00] VITALS: BP 122/80
--- NOTE | 2019-11-06 17:15 | NUR ---
PT RESTING IN BED, IS AT BEDSIDE. DENIES PAIN AT THE MOMENT. BREATHING IS EVEN AND UNLABORED ON RA. BED IS IN LOW POSITION AND CALL LIGHT WITHIN REACH. REMINDED PT TO USE CALL LIGHT FOR ANY ASSISTANCE AND PT VERBALIZED UNDERSTANDING. WILL CONTINUE TO MONITOR.
--- NOTE | 2019-11-06 19:21 | NUR ---
GAVE REPORT TO QUALITY CONTROL COORDINATOR NURSE. PT IS IN STABLE CONDITION.
--- NOTE | 2019-11-06 19:22 | NUR ---
RECD. RESTING IN BED, AWAKE, A/OX4. RESPIRATION EVEN AND UNLABORED. IV OF D5 NS AT 75 ML/HR INFUSING, RIGHT AC G20. INCISION IN THE LEFT SIDE OF ABDOMEN COVERED WITH DRESSING DRY AND INTACT. PLAN OF CARE FOR THE SHIFT DISCUSSED. VERBALIZED UNDERSTANDING. DENIES PAIN 0/10.
--- NOTE | 2019-11-06 20:00 | NUR ---
AMBULATED IN THE HALLWAY FOR 10 MINUTES.
--- NOTE | 2019-11-06 20:00 | NUR ---
Patient's Plan of Care was discussed and reviewed with ESTIMATOR AND DRAFTER: MELY, WILL CONTINUE WITH CURRENT POC.
[2019-11-06 21:56] VITALS: BP 118/69
--- NOTE | 2019-11-06 22:00 | NUR ---
AMBULATED TO TO VOID. BACK TO BED AFTER VOIDING.
--- NOTE | 2019-11-07 | NUR ---
SLEEPING COMFORTABLY IN BED.
[2019-11-07] MEDS: DEXT 5% /NACL 0.9% 1,000 ML IV SCH ×2 (01:32→05:35)
[2019-11-07 01:40] VITALS: BP 104/66
[2019-11-07] MEDS: MORPHINE SULFATE 2 MG/ML SYR IVP PRN (01:53)
--- NOTE | 2019-11-07 05:00 | NUR ---
FLORA DONE BY DRY CELL AND BATTERY ASSEMBLER.
[2019-11-07 06:43] LABS: BASOPHILS % (AUTO) 0.5 % (0.0-2.0); EOSINOPHILS # (AUTO) 0.1 K/uL (0-0.4); EOSINOPHILS % (AUTO) 3.6 % (0.0-4.0); HEMATOCRIT 23.6 % (36-48); HEMOGLOBIN 7.5 g/dL (12.0-16.0); MEAN CORPUSCULAR HEMOGLOBIN 25 pg (27-31); MEAN CORPUSCULAR HGB CONC 32 g/dL (33-37); MEAN CORPUSCULAR VOLUME 80.1 fL (80-94); MONOCYTES # (AUTO) 0.4 K/uL (0.8-1.0); MONOCYTES % (AUTO) 11.1 % (1.7-9.3); NEUTROPHILS % (AUTO) 56.8 % (42.2-75.2); PLATELET COUNT (AUTO) 321 K/uL (140-450); RED BLOOD CELL COUNT(AUTO) 2.95 MIL/uL (4.20-5.40); RED CELL DISTRIBUTION WIDTH 20.2 % (11.6-13.7); WHITE BLOOD COUNT (AUTO) 3.5 K/uL (4.8-10.8)
[2019-11-07 06:54] LABS: ANION GAP 11.3 (8-16); CARBON DIOXIDE 26.7 mmol/L (21-32); CREATININE 0.5 mg/dL (0.6-1.3)
[2019-11-07 06:59] LABS: MAGNESIUM 1.8 mg/dL (1.8-2.4); PHOSPHORUS 3.2 mg/dL (2.5-4.9)
--- NOTE | 2019-11-07 07:00 | NUR ---
STILL SLEEPING COMFORTABLY IN BED. COMPLAINT OF ABDOMINAL PAIN ATTENDED PROMPTLY. MEDICATED ORDERED BY RN. CONDITION REMAIN STABLE. WILL ENDORSE TO AM SHIFT NURSE FOR CONTINUITY OF CARE.
--- NOTE | 2019-11-07 07:15 | NUR ---
ENDORSED TO KRISH CHILEL FOR CONTINUITY OF CARE.
--- NOTE | 2019-11-07 07:16 | NUR ---
RECEIVED REPORT FROM MAGAZINE KEEPER NURSE. PATIENT LYING DOWN IN BED SLEEPING, AROUSABLE BY VOICE. NO DISTRESS NOTED. DENIES ANY PAIN. AAOX4, CALM, COOPERATIVE, SKIN COLOR APPROPRIATE TO ETHNICITY, WARM TO TOUCH. HAS LEFT ABD WOUND WITH SUTURES INTACT S/P REVERSE COLOSTOMY ON 10/30/[address] BOBO. IV SITE INTACT, PATENT, AND INFUSING IVF PER MD ORDERS. REVIEWED PLAN OF CARE WITH PATIENT. PATIENT VERBALIZED UNDERSTANDING. SAFETY MEASURES IN PLACE, CALL LIGHT WITHIN REACH. WILL CONTINUE TO MONITOR.
[2019-11-07 08:00] VITALS: BP 116/77
--- NOTE | 2019-11-07 09:00 | NUR ---
PATIENT AMBULATING AROUND [facility] HALLWAYS WITH . NO DISTRESS NOTED. DENIES NAUSEA/VOMITING. DENIES PAIN AT THIS TIME.
[2019-11-07] MEDS ORDERED: MAG SULF 2000 MG/WATER PREMIX 50 ML IV ONE (10:25)
--- NOTE | 2019-11-07 11:23 | NUR ---
PATIENT LYING DOWN IN BED COMFORTABLY. NO DISTRESS NOTED. DENIES NAUSEA/VOMITING. DENIES PAIN. SCHEDULED MEDICATIONS DUE GIVEN. WILL CONTINUE TO MONITOR.
[2019-11-07] MEDS ORDERED: POTASSIUM CHLORIDE 10 MEQ TABER PO SCH (12:00)
[2019-11-07] MEDS ORDERED: HYDR-5122 PO (12:56)
--- NOTE | 2019-11-07 14:20 | NUR ---
DISCHARGE INSTRUCTIONS GIVEN TO PATIENT/ AT BEDSIDE IN [place]UNG[place] PATIENT PREFERS TO TRANSLATE INSTEAD OF USING LUMBER YARD WORKER PHONE. INSTRUCTIONS ON NEW/CHANGED MEDICATION REGIMEN AND SIDE EFFECTS, DIET REGIMEN, AND DISEASE PROCESS/MANAGEMENT OF ILEUS. ANSWERED ALL OF PATIENT/'S QUESTIONS REGARDING DISCHARGE. ALL PRESCRIPTIONS GIVEN TO PATIENT. PATIENT/ VERBALIZED COMPLETE UNDERSTANDING. IV SITE REMOVED WITH MINIMAL BLOOD AND LUMEN COMPLETELY INTACT. ID BANDS REMOVED. ESCORTED PATIENT DOWN TO LOBBY VIA STEADY AMBULATION. PATIENT DISCHARGED TO HOME AT THIS TIME IN STABLE CONDITION.
--- NOTE | 2019-11-16 14:41 | NUR ---
PCP Appointment: JUAN PABLO contacted Storm from Dr. Kelsey Montes's office [phone] to schedule hospital follow up. JUAN PABLO made appointment for 0900 on 11/20/2019 @ [address] [place] [address]. Patient was notified. No further needs identified. Addendum: 11/16/19 at 1500 by Mireille Toribio SS I called and spoke with patient's Og Jay to notified him of patient's appt with pcp on 11/20/19. Og speaks South Korean. He stated he will provide patient with appt info.
== END 2019-11-07 14:20 | disposition home or self-care (01) | DRG 247 ==
LOC: MED 06:46 → MTU 10:14
PROVIDERS: ADMIT Internal Medicine Pulmonary Disease; ATTEND Internal Medicine Pulmonary Disease
DX: K56.7 Ileus, unspecified (principal); G62.9 Polyneuropathy, unspecified; K59.00 Constipation, unspecified; E86.9 Volume depletion, unspecified; D64.9 Anemia, unspecified; Z93.3 Colostomy status; Z85.038 Personal history of other malignant neoplasm of large intestine; Z92.21 Personal history of antineoplastic chemotherapy; Z90.49 Acquired absence of other specified parts of digestive tract; Z83.3 Family history of diabetes mellitus; Z82.49 Family history of ischemic heart disease and other diseases of the circulatory system
CPT/HCPCS: 36415; 74018; 74250; 80048; 80053; 82150; 83605; 83690; 83735; 84100; 85025; 85610; 85730; 87040; 87081; 96372; 99285; J2270; J2405; J3475; J7030; J7042; Q0092; Q9967

== ENCOUNTER 2019-12-19 17:46 | Emergency (ER) | payer OTHER ==
[~2019-12-19] VITALS: Ht 170.2 cm; Wt 67.6 kg
[~2019-12-19 17:46] MED LIST changes: -ACET-8386 PO; -DOCU-299 PO; -GABA300C PO; +HYDR-5122 PO
[2019-12-19 17:53] VITALS: BP 128/85
--- NOTE | 2019-12-19 18:00 | NUR ---
PT TO BED 9 WITH STEADY GAIT
--- NOTE | 2019-12-19 18:00 | NUR ---
FLU SWAB COLLECTED
--- NOTE | 2019-12-19 18:10 | NUR ---
PT C/O SORE THROAT, EARACHES, VOMITING X 2 EPISODES, DIZZINESS, DIFUSED ABDOMINAL PAIN 4/10 X YESTERDAY. DENIES DIARRHEA OR CONSTIPATION. PATIENT STATES PAIN OF 4/10 AT THIS TIME; VSS; PATIENT POSITIONED FOR COMFORT; HOB ELEVATED; BEDRAILS UP X1; BED DOWN. ER MD MADE AWARE OF PT STATUS.
[2019-12-19] MEDS ORDERED: MECLIZINE 25 MG TAB PO ONE (18:15)
--- NOTE | 2019-12-19 19:11 | NUR ---
RECIVED REPORT FROM KRISH REYES. WILL CONT CARE AT THIS TIME.
[2019-12-19 19:31] VITALS: BP 125/81
--- NOTE | 2019-12-19 19:31 | NUR ---
Patient discharged with v/s stable. Written and verbal after care instructions given and explained. Patient alert, oriented and verbalized understanding of instructions. Ambulatory with to car. All questions addressed prior to discharge. ID band removed. Patient advised to follow up with PMD. Rx of IBUPFROFEN, TAMIFLU, MARCOBID, AND MECLIZINE given. Patient educated on indication of medication including possible reaction and side effects. Opportunity to ask questions provided and answered.
== END 2019-12-19 19:31 | disposition home or self-care (01) ==
LOC: MED 17:46
DX: J02.9 Acute pharyngitis, unspecified (principal); N39.0 Urinary tract infection, site not specified; R42 Dizziness and giddiness; Z79.899 Other long term (current) drug therapy; Z98.890 Other specified postprocedural states; Z85.9 Personal history of malignant neoplasm, unspecified
CPT/HCPCS: 81002; 82948; 87804; 99283; J8597